=== PATIENT | female | born 1985 | race Caucasian/White ===

== ENCOUNTER 2019-09-04 20:20 | Inpatient (IN) | payer MEDICAID ==
[~2019-09-04] VITALS: Ht 162.6 cm; Wt 100.0 kg
[2019-09-04] MEDS ORDERED: HALOPERIDOL 5 MG/ML VIAL (J1630) IM ONE (21:00)
[2019-09-04] MEDS ORDERED: diphenhydrAMINE INJ 50MG/ML VIAL (J1200) IM ONE (21:00)
[2019-09-04 21:20] VITALS: BP 129/63
[2019-09-04 21:33] LABS: HEMATOCRIT 37.9 % (36.0-47.0); HEMOGLOBIN 12.1 g/dl (12.0-15.5); MEAN CORPUSCULAR HEMOGLOBIN 28.5 pg (27.0-33.0); MEAN CORPUSCULAR HGB CONC 31.9 g/dl (32.0-36.5); MEAN CORPUSCULAR VOLUME 89.4 fl (80.0-96.0); PLATELET COUNT, AUTOMATED 272 10^3/uL (150-450); RED BLOOD COUNT 4.24 10^6/uL (4.00-5.40)
[2019-09-04 21:48] LABS: AMPHETAMINES LEVEL URINE NEGATIVE (NEGATIVE); BARBITURATES URINE NEGATIVE (NEGATIVE); BENZODIAZEPINES URINE NEGATIVE (NEGATIVE); CANNABINOIDS URINE NEGATIVE (NEGATIVE); COCAINE METABOLITE URINE NEGATIVE (NEGATIVE); METHADONE URINE NEGATIVE (NEGATIVE); OPIATES URINE NEGATIVE (NEGATIVE); PHENCYCLIDINE URINE NEGATIVE (NEGATIVE)
[2019-09-04 21:55] LABS: HCG, SERUM QUALITATIVE NEGATIVE (NEGATIVE)
[2019-09-04 21:57] LABS: ACETAMINOPHEN LEVEL < 2.0 UG/ML (10.0-30.0); ALT/SGPT 19 U/L (12-78); BILIRUBIN,DIRECT 0.2 MG/DL (0.0-0.2); BILIRUBIN,TOTAL 0.4 MG/DL (0.2-1.0); BLOOD UREA NITROGEN 9 MG/DL (7-18); CALCIUM LEVEL 8.5 MG/DL (8.5-10.1); CARBON DIOXIDE LEVEL 24 MEQ/L (21-32); CHLORIDE LEVEL 105 MEQ/L (98-107); CREATININE FOR GFR 0.82 MG/DL (0.55-1.30); ETHYL ALCOHOL (ETHANOL) < 0.003 % (0.000-0.010); GLOMERULAR FILTRATION RATE > 60.0 (>60); GLUCOSE, FASTING 96 MG/DL (70-100); POTASSIUM SERUM 4.2 MEQ/L (3.5-5.1); SALICYLATE LEVEL 2.4 MG/DL (5.0-30.0); SODIUM LEVEL 138 MEQ/L (136-145); TOTAL PROTEIN 7.5 GM/DL (6.4-8.2)
[2019-09-06] MEDS ORDERED: IBUPROFEN 400 MG TAB PO PRN (12:45)
[2019-09-06] MEDS ORDERED: MOM 30ML SUSPENSION UDC PO PRN (12:45)
[2019-09-06] MEDS ORDERED: MAALOX 30 ML SUSP *UDC PO PRN (12:45)
[2019-09-06] MEDS ORDERED: OLANZapine ORAL DISINTEGRATING TAB 5MG PO PRN (12:45)
[2019-09-06] MEDS ORDERED: ACETAMINOPHEN TAB 650MG DOSE (2X325MG) PO PRN (12:45)
--- NOTE | 2019-09-07 11:04 | MHHPEPDOC ---
[facility] History & Physical History and Physical DATE OF ADMISSION: Sep 06, 2019 at 12:40 New Patient Maria Elena Fonseca MRN: N/A Date of : N/A Date of Service: 09/07/2019 Chief Complaint "You discriminate with people who wear underwear on their head." History of Present Illness The patient, a 34-year-old woman, presents to [facility] after being found by police, she had become menacing at a local restaurant with a chopstick, bizarre, disorganized, and malodorous. She had fled from the scene, running into a local grocery store where she had begun grabbing various objects and throwing a register. She was brought in where she was found to be highly tangential, unable to describe any meaningful situations that had brought her in, and had reported that she had a "TBI." However, she was noted to have fairly unusual sanitary habits, fairly malodorous and unable to care for herself. She was admitted due to her gravely disabled nature. I attempted to meet with the patient, however after close to a half an hour of attempting to get a coherent story I was unable to, as the patient was highly tangential, unable to discuss with me at length the situations that had even brought her in. She was quite upset that she was not allowed to go as she had requested a court hearing. However, her letter was illegible and difficult to read, even when I had brought it to her she was not able to translate what she had written. The patient reports that she wishes to go, however appears completely unamenable to the situation and has no insight into the situation that had brought her in. She continues to wear a disposable undergarment on her head, reporting that she is a [employer] and that she needs to wear a head covering, however she is unable to explain why other head coverings may be more useful. She is extremely malodorous with matted hair. She additionally has refused a shower and believes soap is "poison." Review Of Systems Past Psychiatric History Reports having history of "TBI" and had reported admission several years ago for hallucinations "after Wellbutrin." Does appear to have any current follow-up. Reports in the past to have indicated a history of PTSD and OCD. Allergies Please see below. Family Psychiatric History Unable to determine due to patient's significant impairment and mental status. Social History The patient is currently homeless as far as we are able to determine, with no significant social supports at this time. She is currently single from chart review, but little else is able to be determined. Substance Abuse History Unable to determine due to patient's mental status, however toxicology on presentation was negative. Medical History Unclear. Mental Status Examination General: Extremely poor hygiene Speech: Tangential and pressured Thought processes: Unclear, unlinear MSK: Smooth and coordinated gait, no signs of tremors or involuntary orofacial movements Thought content: Bizarre and paranoid Abstract reasoning, and computation: Impaired Description of associations: Impaired Description of abnormal or psychotic thoughts: Appears to be quite bizarre and paranoid. Unable to answer questions directly. Judgment: significant impairment Insight: significantly impaired to nonexistent Orientation: Alert and orientated 3 Cognition: Grossly normal Recent and remote memory: Impaired secondary to thought process Attention span and concentration: Impaired secondary to thought process Fund of knowledge: Unable to determine Mood: "fine" Affect: Elevated Diagnoses Unspecified psychotic disorder. Assessment and Plan Unspecified psychotic disorder: Start Zyprexa 5 mg nightly. Discussed with patient about the rationale for her continued stay and the need for medication due to her thought process and difficulty caring for herself. She had no insight into this and was unable to reason out why she was here or have a coherent story. The patient had become fairly upset at this, however was not overly agitated. She might need a treatment over objection and court hearing as she is unlikely to have enough insight to take medications at this time. Disposition The patient will need a further inpatient admission due to significant psychosis impairing her ability to care for herself. She is unable to attend to even the most basic ADLs at this time. Problem List 1. Altered thoughts. Initial Treatment Plan 1. Patient was admitted on a 9.39 legal status. 2. Complete history was obtained. 3. With patients permission, family will be contacted and database will be expanded. 4. Patients medication regimen will be reviewed and changed accordingly. 5. Patient will be provided with protected environment. 6. Patient will be treated with individual, group, and milieu therapies. 7. Patient will receive supportive psych-education. 8. Discharge planning will commence immediately. 9. Outpatient follow-up treatment will be strongly recommended. 10. The initial treatment plan will focus initially on: Estimated Length Of Stay 5 days. Time Spent 70 minutes in total. Friday Vital Signs Vital Signs Date Time Temp Pulse Resp B/P (MAP) Pulse Ox O2 Delivery O2 Flow Rate FiO2 09/05/19 16:26 20 09/05/19 11:02 Room Air 09/04/19 21:20 102 129/63 Medications Unable to Obtain Active Prescriptions or Reported Meds Allergies Coded Allergies: bupropion (Verified Allergy, Intermediate, 09/06/19) NASIR NUÑEZ DO Sep 07, 2019 11:04
--- NOTE | 2019-09-07 16:23 | HPEPDOC ---
General Date of Admission Sep 06, 2019 at 12:40 Date of Service: Sep 07, 2019 Chief Complaint The patient is a 34-year-old female admitted with a reason for visit of Unspecified Psychosis. Patient was found to be acting aggressively at a local restaurant, police were called to the scene. Patient was agitated and aggressive, brought to the ED and admitted to mental health unit. Patient has a history of anxiety, depression PTSD, apparently on multiple psychiatric medications but has not been on them due to "multiple allergies". On questioning, patient denies any significant medical history other than PCOS. Denies chest pain/pressure, n/v/d, abdominal pain, shortness of breath, urinary complaints. Source: Patient, RN/MD Home Medications Unable to Obtain Active Prescriptions or Reported Meds Allergies Coded Allergies: bupropion (Verified Allergy, Intermediate, 09/06/19) Past Medical History Medical History anxiety, depression, PTSD, PCOS Surgical History C section, b/l knee meniscus/ACL repair Family History Significant Family History: No pertinent family hx Social History * Smoker: former Smoker Alcohol: Denies Drugs: marijuana A-FIB/CHADSVASC A-FIB History Current/History of A-Fib/PAF?: No Current PO Anticoag Therapy: No Vital Signs Vital Signs Date Time Temp Pulse Resp B/P (MAP) Pulse Ox O2 Delivery O2 Flow Rate FiO2 09/05/19 16:26 20 09/05/19 11:02 Room Air 09/04/19 21:20 102 129/63 Assessment/Plan 1. PCOS - no active management. 2. obesity - dietary counselling for weight loss. 3. anxiety/depression/psychosis - management as per psych. Plan / VTE VTE Prophylaxis Ordered?: No JUAN ALAS MD Sep 07, 2019 16:23
[2019-09-07] MEDS: OLANZapine ORAL DISINTEGRATING TAB 5MG PO SCH (21:00)
--- NOTE | 2019-09-08 11:04 | MHIPNPDOC ---
[facility] Progress Note Progress Note Inpatient Progress Note Maria Elena Fonseca MRN: N/A Date of : N/A Date of Service: 09/08/2019 History of Present Illness The patient, a 34-year-old woman, presents to [facility] after being found by police, she had become menacing at a local restaurant with a chopstick, bizarre, disorganized, and malodorous. She had fled from the scene, running into a local grocery store where she had begun grabbing various objects and throwing a register. She was brought in where she was found to be highly tangential, unable to describe any meaningful situations that had brought her in, and had reported that she had a "TBI." However, she was noted to have fairly unusual sanitary habits, fairly malodorous and unable to care for herself. She was admitted due to her gravely disabled nature. Interval History The patient is admitted to the inpatient unit where she has done somewhat better. The patient has made some progress, although has refused medications. She did have a shower the previous evening after she had gotten special soap. The patient still is tangential, although less pressured. She has been sleeping more and less unusual today. Reportedly her mother had called and stated that she has a diagnosis of bipolar disorder. She reports that she wishes to go but nursing staff continue to report the patient is unable to care for herself and that she has not been attending to ADLs while on our unit. She has had no major behavioral problems, although the previous evening and has not lashed out violently or made any threats. Review Of Systems Difficult to ascertain due to tangentiality. Psychotherapy None on this visit. Vital Signs Reviewed. Mental Status Examination General: Improved hygiene. Speech: Less tangential. Thought processes: More linear. MSK: Smooth and coordinated gait, no signs of tremors or involuntary orofacial movements Thought content: Less paranoid. Abstract reasoning, and computation: Improved. Description of associations: Improved. Description of abnormal or psychotic thoughts: Appears to be quite bizarre and paranoid. Unable to answer questions directly. Judgment: Improved. Insight: Improved. Orientation: Alert and orientated 3 Cognition: Grossly normal Recent and remote memory: Improved. Attention span and concentration: Mildly improved. Fund of knowledge: Somewhat adequate. Mood: "fine" Affect: Less elevated. Diagnoses Unspecified psychotic disorder. Bipolar disorder type 1, most recent episode manic, mild to moderate. Assessment and Plan Bipolar disorder type 1: Discontinue Zyprexa for now as the patient does not wish to take off her lithium 150 mg daily and fluphenazine 5 mg nightly. Discussed with patient the risks and benefits as well as potential side effects as far as she is able to understand. She is willing to take lithium, but not fluphenazine. Will see if patient takes medications as to whether she has any improvement as she is primarily being held on gravely disabled of what she appears to be making some moderate strides towards becoming able to attend to basic needs. Will continue to monitor closely. Disposition Patient needs continued inpatient monitoring due to significantly impaired ADLs and ability to attend to her own needs due to her bipolar sonal. Time Spent 20 minutes. Friday Vital Signs Vital Signs Date Time Temp Pulse Resp B/P (MAP) Pulse Ox O2 Delivery O2 Flow Rate FiO2 09/05/19 16:26 20 09/05/19 11:02 Room Air 09/04/19 21:20 102 129/63 Current Medications Current Medications Medications (Trade) Dose Ordered Sig/Alfredo Route PRN Reason Start Time Stop Time Status Last Admin Dose Admin Acetaminophen (Tylenol Tab) 650 mg Q6HP PRN PO HEADACHE or DISCOMFORT 09/06/19 12:45 Al Hydrox/Mg Hydrox/Simethicone (Mylanta) 30 ml Q4HP PRN PO HEARTBURN/INDIGESTION 09/06/19 12:45 Ibuprofen (Advil) 400 mg Q6HP PRN PO PAIN 09/06/19 12:45 Magnesium Hydroxide (Milk Of Magnesia) 30 ml DAILYPRN PRN PO CONSTIPATION 09/06/19 12:45 Olanzapine (ZyPREXA ZYDIS) 5 mg Q4HP PRN PO AGITATION 09/06/19 12:45 Olanzapine (ZyPREXA ZYDIS) 5 mg QHS PO 09/07/19 21:00 Allergies Coded Allergies: bupropion (Verified Allergy, Intermediate, 09/06/19) NASIR NUÑEZ DO Sep 08, 2019 11:04
[2019-09-08] MEDS: LITHIUM CARBONATE 300MG/5ML(8MEQ/5ML)ORAL SOLUTION UDC PO SCH (20:49)
[2019-09-08] MEDS: OLANZapine ORAL DISINTEGRATING TAB 5MG PO SCH (21:00)
[2019-09-09] MEDS: LITHIUM CARBONATE 300MG/5ML(8MEQ/5ML)ORAL SOLUTION UDC PO SCH ×2 (10:10→21:07)
--- NOTE | 2019-09-09 10:14 | MHIPNPDOC ---
[facility] Progress Note Progress Note Inpatient Progress Note Maria Elena Fonseca MRN: N/A Date of : N/A Date of Service: 09/09/2019 History of Present Illness The patient, a 34-year-old woman, presents to [facility] after being found by police, she had become menacing at a local restaurant with a chopstick, bizarre, disorganized, and malodorous. She had fled from the scene, running into a local grocery store where she had begun grabbing various objects and throwing a register. She was brought in where she was found to be highly tangential, unable to describe any meaningful situations that had brought her in, and had reported that she had a "TBI." However, she was noted to have fairly unusual sanitary habits, fairly malodorous and unable to care for herself. She was admitted due to her gravely disabled nature. Interval History The patient is seen again today. She is much less tangential. She has been social on the unit, talkative and much more appropriate. She has been bathing more frequently, although requiring some prompting. Her hygiene has made significant improvement. She has been taking the lithium 150 mg BID without protest. She still is ambivalent about taking a neuroleptic despite my insistence, however, nursing staff report the patient has not been endorsing any significantly bizarre ideation and has been cooperative. She has been social on the unit, attending to her needs, further making it more likely that the patient is not gravely disabled as to put herself in danger. I discussed this with the patient and she was amenable. She agreed that she would cooperate with discharge planning as she has been insistent about going. At this point, there is little I can hold her on as she has been cooperative with treatment and other than some unusual statements at times, she is attending to her basic needs so far as we can see. She has had no major behavioral problems overnight, has attended a group or two. Review Of Systems General: Denies fever or appetite changes Cardiovascular: Denies chest pain or palpitations GI: Denies Nausea, vomiting, or bowel changes Respiratory: Denies shortness of breath or cough Neuro: Denies dizziness, tremors Derm: Denies any rashes or pruritus : Denies any dysuria or urinary problems MSK: Denies any muscle tightness or stiffness HEENT: Denies any vision changes or headaches Psychotherapy None on this visit. Vital Signs Reviewed. Mental Status Examination General: Improved hygiene. Speech: Less tangential. Thought processes: More linear. MSK: Smooth and coordinated gait, no signs of tremors or involuntary orofacial movements Thought content: No evidence of paranoid thoughts projecting today. Abstract reasoning, and computation: Improved. Description of associations: Improved. Description of abnormal or psychotic thoughts: Denies any suicidal or homicidal ideation. Denies auditory or visual hallucinations. Does not appear to be responding to internal stimuli. Is answering questions directly with no paranoid ideation. Judgment: Improved. Insight: Improved. Orientation: Alert and orientated 3 Cognition: Grossly normal Recent and remote memory: Improved. Attention span and concentration: Mildly improved. Fund of knowledge: Somewhat adequate. Mood: "Fine" Affect: Near euthymic. Diagnoses Unspecified psychotic disorder. Assessment and Plan Unspecified psychotic disorder: Discontinue Zyprexa for now as the patient does not wish to take off her lithium 150 mg daily and fluphenazine 5 mg nightly. Discussed with patient the risks and benefits as well as potential side effects as far as she is able to understand. She is willing to take lithium, but not fluphenazine. Will see if patient takes medications as to whether she has any improvement as she is primarily being held on gravely disabled of what she appears to be making some moderate strides towards becoming able to attend to basic needs. Will continue to monitor closely. Continue lithium 150 mg daily. Patient not amenable to neuroleptic/antipsychotic at this time. The patient has been improving with improved hygiene and ability to take care of herself. She is more able to corporate with discharge planning and I find myself in a position where I find it hard to justify further involuntary alf of this patient as the primary nature of gravely disabled she is not primarily meeting. She does have some symptoms of psychosis that lik omer still linger, however, she appears to be able to hold them and check well enough to cooperate with others, be social and take care of her basic needs. Although some odd behavior will likely remain, this in my opinion does not make her eligible for further involuntary and she has made it clear that she wishes to be discharged. Disposition Discharge tomorrow if continued improvement. Time Spent 20 minutes. Vital Signs Vital Signs Date Time Temp Pulse Resp B/P (MAP) Pulse Ox O2 Delivery O2 Flow Rate FiO2 09/05/19 16:26 20 09/05/19 11:02 Room Air 09/04/19 21:20 102 129/63 Current Medications Current Medications Medications (Trade) Dose Ordered Sig/Alfredo Route PRN Reason Start Time Stop Time Status Last Admin Dose Admin Acetaminophen (Tylenol Tab) 650 mg Q6HP PRN PO HEADACHE or DISCOMFORT 09/06/19 12:45 Al Hydrox/Mg Hydrox/Simethicone (Mylanta) 30 ml Q4HP PRN PO HEARTBURN/INDIGESTION 09/06/19 12:45 Fluphenazine HCl (Prolixin) 5 mg QHS PO 09/08/19 21:00 Ibuprofen (Advil) 400 mg Q6HP PRN PO PAIN 09/06/19 12:45 Eyota Carbonate (Eskalith Oral Solution) 150 mg BID PO 09/08/19 21:00 09/09/19 10:10 Magnesium Hydroxide (Milk Of Magnesia) 30 ml DAILYPRN PRN PO CONSTIPATION 09/06/19 12:45 Olanzapine (ZyPREXA ZYDIS) 5 mg Q4HP PRN PO AGITATION 09/06/19 12:45 Olanzapine (ZyPREXA ZYDIS) 5 mg QHS PO 09/07/19 21:00 Allergies Coded Allergies: bupropion (Verified Allergy, Intermediate, 09/06/19) NASIR NUÑEZ DO Sep 09, 2019 10:14
[2019-09-09] MEDS: OLANZapine ORAL DISINTEGRATING TAB 5MG PO SCH (21:00)
--- NOTE | 2019-09-10 07:44 | MHDSPDOC ---
[facility] Discharge Summary Discharge Summary DATE OF ADMISSION: Sep 06, 2019 at 12:40 DATE OF DISCHARGE: 09/09/19 Discharge Maria Elena Fonseca MRN: N/A Date of : N/A Date of Service: 09/10/2019 Diagnoses Unspecified psychotic disorder. History of Present Illness The patient, a 34-year-old woman, presents to [facility] after kiran ng found by police, she had become menacing at a local restaurant with a chopstick, bizarre, disorganized, and malodorous. She had fled from the scene, running into a local grocery store where she had begun grabbing various objects and throwing a register. She was brought in where she was found to be highly tangential, unable to describe any meaningful situations that had brought her in, and had reported that she had a "TBI." However, she was noted to have fairly unusual sanitary habits, fairly malodorous and unable to care for herself. She was admitted due to her gravely disabled nature. Consultants Involved Hospitalist/PCP screening Treatment and Progress On The Unit The patient was admitted to the inpatient unit where she was noted to be fairly malodorous and psychotic, unable to carry on a coherent conversation. The patient i day or so when she had requested discharge multiple times after explaining that she would need to show whether she was able to take care of herself and to try medications due to her psychotic disorder. She was amenable and tried lithium, reporting having done well on it before. Her mother had given us some collateral information suggesting the patient had bipolar disorder in the past. The patient made progress to 150 mg of lithium BID as this was the max amount she was willing to take. The patient did well in the unit. She began to bath more frequently. Her hygiene made some improvements. She additionally became much less tangential, more able to hold conversations and was more social on the unit, even attending some groups. She did have some unusual behaviors at time, namely a want to wear a head garment that she substituted with undergarments, however, after several days of observation, she was demonstrating she was able to take care of herself to the basic degrees and was able to cooperate with discharge planning well enough to be considered for discharge. Discharge Assessment The patient, a 34-year-old woman who presents with psychosis, is treated with low-dose lithium as she is only amenable to this, refusing to try neuroleptics even at my behest. She is observed where she had not made any threats towards herself or others and was primarily being held on the gravely disabled statute for involuntary as she had made quite clear that she did not wish to be on a psychiatric unit. She made progress where she subsequently stopped endorsing as bizarre ideation. She was less tangential, more able to hold conversations with a relatively improved mental status exam, improving every day until the day of discharge when it was determined that she did not meet strict involuntary criteria at that time as she had improved mental status, was coherent enough to cooperate with discharge planning and was amenable, however, at the time of this note, the patient had left the inpatient unit, but subsequently began to endorse psychotic ideation and refused to leave after getting into a stranger's car, sitting unusually, unable to cooperate well enough in order to go to [facility] and thus a pick-up border was called to bring her back for assessment and readmission as although she had been able to demonstrate the ability to attend to ADLs and attend to basic needs on the unit, it appears that when she was outside the unit, she was unable to maintain this and thus she overall is needing more inpatient hospitalization. Mental Status Examination General: Improved hygiene Speech: Less tangential Thought processes: More linear MSK: Smooth and coordinated gait, no signs of tremors or involuntary orofacial movements Thought content: No evidence of paranoid thoughts projecting today Abstract reasoning, and computation: Improved Description of associations: Improved Description of abnormal or psychotic thoughts: Denies any suicidal or homicidal ideation. Denies auditory or visual hallucinations. Does not appear to be responding to internal stimuli. Is answering questions directly with no paranoid ideation Judgment: Improved Insight: Improved Orientation: Alert and orientated 3 Cognition: Grossly normal Recent and remote memory: Improved Attention span and concentration: Mildly improved Fund of knowledge: Somewhat adequate Mood: "Fine" Affect: Near euthymic Follow Up The social work team worked during the predischarge meeting in order to evaluate for further issues of lethality address them fully before discharge. They worked on safety planning with the patient's family members in order to ensure that the patient will have a safe and effective discharge. Time Spent The amount of time spent in the coordination of care for this patient was approximately 70 minutes. Friday Vital Signs/I&Os Vital Signs Date Time Temp Pulse Resp B/P (MAP) Pulse Ox O2 Delivery O2 Flow Rate FiO2 09/05/19 16:26 20 09/05/19 11:02 Room Air 09/04/19 21:20 102 129/63 Medications Scheduled [place]-Arcade Carbonate (Arden-Arcade Carbonate) 300 Mg Capsule, 2.5 ML PO BID for mood for 7 Days, #35 Allergies Coded Allergies: bupropion (Verified Allergy, Intermediate, 09/06/19) NASIR NUÑEZ DO Sep 10, 2019 07:44
[2019-09-10] MEDS: LITHIUM CARBONATE 300MG/5ML(8MEQ/5ML)ORAL SOLUTION UDC PO SCH (09:55)
[2019-09-10] MEDS ORDERED: LITH300C PO (12:01)
== END 2019-09-10 15:17 | disposition home or self-care (01) | DRG 751 ==
LOC: EDBD 20:20 → M ED 20:20 → M ED INP 09-06 12:40 → M PSY 09-06 15:49
PROVIDERS: ADMIT Psychiatry & Neurology Addiction Medicine; ATTEND Psychiatry & Neurology Addiction Medicine
DX: F29 Unspecified psychosis not due to a substance or known physiological condition (principal); Z88.8 Allergy status to other drugs, medicaments and biological substances; F41.9 Anxiety disorder, unspecified; F43.10 Post-traumatic stress disorder, unspecified; Z91.14 Patient's other noncompliance with medication regimen; E28.2 Polycystic ovarian syndrome; F12.10 Cannabis abuse, uncomplicated; Z87.891 Personal history of nicotine dependence; E66.9 Obesity, unspecified; Z68.37 Body mass index [BMI] 37.0-37.9, adult; F31.12 Bipolar disorder, current episode manic without psychotic features, moderate

== ENCOUNTER 2019-09-10 16:03 | Inpatient (IN) | payer MEDICAID ==
[~2019-09-10] VITALS: Ht 162.6 cm; Wt 109.8 kg
[~2019-09-10 16:03] MED LIST: LITH300C PO
[2019-09-10] MEDS ORDERED: MOM 30ML SUSPENSION UDC PO PRN (17:00)
[2019-09-10] MEDS ORDERED: MAALOX 30 ML SUSP *UDC PO PRN (17:00)
[2019-09-10] MEDS ORDERED: traZODone 50 MG TAB PO PRN (17:00)
[2019-09-10] MEDS ORDERED: ACETAMINOPHEN TAB 650MG DOSE (2X325MG) PO PRN (17:00)
[2019-09-10 17:18] LABS: HEMATOCRIT 36.6 % (36.0-47.0); HEMOGLOBIN 11.1 g/dl (12.0-15.5); MEAN CORPUSCULAR HEMOGLOBIN 27.3 pg (27.0-33.0); MEAN CORPUSCULAR HGB CONC 30.3 g/dl (32.0-36.5); MEAN CORPUSCULAR VOLUME 90.1 fl (80.0-96.0); PLATELET COUNT, AUTOMATED 294 10^3/uL (150-450); RED BLOOD COUNT 4.06 10^6/uL (4.00-5.40); WHITE BLOOD COUNT 6.7 10^3/uL (4.0-10.0)
[2019-09-10 17:47] LABS: AMPHETAMINES LEVEL URINE NEGATIVE (NEGATIVE); BARBITURATES URINE NEGATIVE (NEGATIVE); BENZODIAZEPINES URINE NEGATIVE (NEGATIVE); CANNABINOIDS URINE NEGATIVE (NEGATIVE); COCAINE METABOLITE URINE NEGATIVE (NEGATIVE); METHADONE URINE NEGATIVE (NEGATIVE); OPIATES URINE NEGATIVE (NEGATIVE); PHENCYCLIDINE URINE NEGATIVE (NEGATIVE)
[2019-09-10 17:59] LABS: ACETAMINOPHEN LEVEL < 2.0 UG/ML (10.0-30.0); ALBUMIN 3.8 GM/DL (3.2-5.2); ALT/SGPT 20 U/L (12-78); BILIRUBIN,DIRECT 0.1 MG/DL (0.0-0.2); BILIRUBIN,TOTAL 0.2 MG/DL (0.2-1.0); BLOOD UREA NITROGEN 15 MG/DL (7-18); CALCIUM LEVEL 8.2 MG/DL (8.5-10.1); CARBON DIOXIDE LEVEL 27 MEQ/L (21-32); CHLORIDE LEVEL 105 MEQ/L (98-107); CREATININE FOR GFR 0.85 MG/DL (0.55-1.30); ETHYL ALCOHOL (ETHANOL) < 0.003 % (0.000-0.010); GLOMERULAR FILTRATION RATE > 60.0 (>60); GLUCOSE, FASTING 74 MG/DL (70-100); POTASSIUM SERUM 4.2 MEQ/L (3.5-5.1); SALICYLATE LEVEL 1.7 MG/DL (5.0-30.0); SODIUM LEVEL 139 MEQ/L (136-145); TOTAL PROTEIN 7.2 GM/DL (6.4-8.2)
[2019-09-10 20:52] VITALS: BP 113/64
[2019-09-10] MEDS: LITHIUM CARBONATE 300MG/5ML(8MEQ/5ML)ORAL SOLUTION UDC PO SCH (23:18)
[2019-09-11] MEDS ORDERED: INFLUENZA QUADRIVALENT PF VACCINE 0.5ML SYRINGE (90686) IM ONE (09:00)
[2019-09-11] MEDS: LITHIUM CARBONATE 300MG/5ML(8MEQ/5ML)ORAL SOLUTION UDC PO SCH ×2 (09:42→21:31)
--- NOTE | 2019-09-11 10:11 | HPEPDOC ---
General Date of Admission Sep 10, 2019 at 16:48 Date of Service: Sep 11, 2019 Chief Complaint The patient is a 34-year-old female admitted with a reason for visit of Unspecified Psychosis. Source: Patient Exam Limitations: No limitations Timing/Duration: Other (not applicable) Severity: Other (out applicable) Associated Symptoms: Other (not applicable) History of Present Illness This is 33 years old white female who was discharged from mental health unit, but unfortunately they had lost her shoes and clothes so as per patient, she ran out and try to get a ride from an old lady as she had no coupon for the taxi and police was called and she was brought back to inpatient mental health unit for readmission. Patient offers no complaints of chest pain, shortness of breath, nausea, vomiting, diarrhea, abdominal pain, etc. Home Medications Scheduled [place] Carbonate ([place] Carbonate) 300 Mg Capsule, 2.5 ML PO BID for mood Allergies Coded Allergies: bupropion (Verified Allergy, Intermediate, 09/06/19) Past Medical History Medical History Polycystic ovarian disease, anxiety, depression, PTSD Surgical History Bilateral ACL repair and one Family History Significant Family History: No pertinent family hx Social History * Smoker: current smoker Alcohol: Denies Drugs: marijuana A-FIB/CHADSVASC A-FIB History Current/History of A-Fib/PAF?: No Review of Systems Constitutional: Denies: Chills, Fever, Malaise, Night Sweats, Weakness, Fa tigue, Weight Loss, Lethargy, Other Eyes: Denies: Pain, Vision change, Conjunctivae inflammation, Eyelid inflammation, Redness, Other ENT: Denies: Head Aches, Ear Pain, Dysphagia, Sinus Congestion, Post Nasal Drip, Sore Throat, Epistaxis, Other Symptoms Skin: Denies: Rash, Lesions, Jaundice, Bruising, Itching, Dry, Breakdown, Nail Changes, Other Pulmonary: Denies: Dyspnea, Cough, Pleuritic Chest Pain, Other Symptoms Cardiovascular: Denies: Chest Pain, Palpitations, Orthopnea, Paroxysmal Noc. Dyspnea, Edema, Lt Headedness, Other Symptoms Gastrointestinal: Denies: Nausea, Vomiting, Abdominal Pain, Diarrhea, Constipation, Melena, Hematochezia, Other Symptoms Hematologic: Denies: Bruising, Bleeding Excessively, Petecchia, Purpura, Enlarged Lymph Nodes, Other Hematologic Endocrine: Denies: Polydipsia, Polyphagia, Polyuria, Heat Intolerance, Cold Intolerance, Other Endocrine Sx Musculoskeletal: Denies: Neck Pain, Back Pain, Shoulder Pain, Arm Pain, Hand Pain, Leg Pain, Foot Pain, Joint Pain, Muscle Pain, Spasms, Other Symptoms Neurological: Denies: Weakness, Numbness, Incoordination, Change in speech, Confusion, Seizures, Other Symptoms Psych: Reports: Anxiety, Depression Physical Examination General Exam: Positive: Alert, Cooperative Eye Exam: Positive: PERRLA, Conjunctiva & lids normal ENT Exam: Positive: Atraumatic, Mucous membr. moist/pink Chest Exam: Positive: Other (. Mild expiratory wheezing on the right side. No rhonchi is no rales) Heart Exam: Positive: Rate Normal, Normal S1, Normal S2 Abdomen Exam: Positive: Normal bowel sounds, Soft Extremity Exam: Positive: Normal pulses Skin Exam: Positive: Nl turgor and temperature Neuro Exam: Positive: Strength at 5/5 X4 ext, Sensation Intact, Cranial Nerves 3-12 NL Psych Exam: Positive: Mental status NL, Mood NL, Oriented x 3 Vital Signs Vital Signs Date Time Temp Pulse Resp B/P (MAP) Pulse Ox O2 Delivery O2 Flow Rate FiO2 09/10/19 20:52 98.8 83 16 113/64 (80) 97 Room Air Laboratory Data Labs 24H Laboratory Tests 2 09/10/19 16:47: Urine Opiates Screen NEGATIVE, Urine Methadone Screen NEGATIVE, Urine Barbiturates Screen NEGATIVE, Urine Phencyclidine Screen NEGATIVE, Urine Amphetamines Screen NEGATIVE, Urine Benzodiazepines Screen NEGATIVE, Urine Cocaine Metabolite Screen NEGATIVE, Urine Cannabinoids Screen NEGATIVE 09/10/19 17:00: Nucleated Red Blood Cells % (auto) 0.0, Anion Gap 7L, Glomerular Filtration Rate > 60.0, Calcium Level 8.2L, Total Bilirubin 0.2, Direct Bilirubin 0.1, Aspartate Amino Transf (AST/SGOT) 19, Alanine Aminotransferase (ALT/SGPT) 20, Alkaline Phosphatase 64, Total Protein 7.2, Albumin 3.8, Albumin/Globulin Ratio 1.12, Thyroid Stimulating Hormone (TSH) 1.680, Salicylates Level 1.7L, Acetaminophen Level < 2.0L, Ethyl Alcohol Level < 0.003 CBC/BMP Laboratory Tests 09/10/19 17:00 Problems (1) Disorganized thought process Status: Acute Problem Text: Patient admitted to inpatient mental health unit for further care Group and individual counseling as per psych Medications as per psychiatric attending (2) Nicotine addiction Problem Text: Patient declined to take nicotine patch or gum or any other replacement therapy at this point Smoking cessation counseling was done (3) COPD (chronic obstructive pulmonary disease) Status: Acute Problem Text: Patient has a mild wheezing on left lung on expiration, most likely secondary to COPD secondary to her smoking Patient declines any symptoms but will restart albuterol to 4 EVERY 4 hours when necessary for wheezing. She agrees to take (4) Polycystic ovarian syndrome Status: Chronic Problem Text: No further intervention at this point Plan / VTE VTE Prophylaxis Ordered?: No BEENA KAISER MD Sep 11, 2019 10:11
[2019-09-11] MEDS ORDERED: ALBUTEROL 90 MCG/ACT 8GM HFA INHALER INH PRN (10:15)
--- NOTE | 2019-09-11 11:36 | MHHPEPDOC ---
General Date Of Admission: Sep 10, 2019 Legal Status: 9.39 Chief Complaint pt was bizarre. History of Present Illness HISTORY OF THE PRESENT ILLNESS: Patient is a 34 -year-old , female, wit h history unspecified psychosis and bipolar 1 d/o who was d/c from [facility] yesterday then presented to the ED the same day of admission after she was brought in by PD after being reported as attempting to get into other people's cars in the [facility] parking lot after d/c, having rapid/expressive speech, and wearing underwear on her head. She was very tangential when see in the ED. She is a very poor historian given her current rapid speech and limited attention. Please refer to Dr. Huggisn's admit note for further information regarding previous admission [facility] for psychosis/carolann on 09/07/18. Psychiatric Review of Systems Depression (2 or more weeks): denies Carolann (4 or more days of): expansive mood, grandiosity, decreased need for sleep, still with energy, talkativity, pressured, flight of ideas, distractibility, goal-directed activities, engages in risky behavior Psychosis: disorganization PTSD: denies Anxiety: denies Anxiety/ 6 months or more of: restlessness, keyed up, difficulty concentrating Past Psychiatric History Previous Psychiatric Diagnosis: Unspecified psychotic disorder, Bipolar disorder type 1, most recent episode manic, mild to moderate. Previous Psychiatric Admissions: d/c from [facility] yesterday then presented with similar complaints as admitted same complaints/symptoms as previous on the same day of discharge Suicide Attempts: unknown Psychiatric Follow-up: [facility]? Psychiatric medications: lithium 150mg bid Past Medical History Medical Problems Unclear Head Injury: No Seizures: No Hospitalizations: Yes Surgeries: No Family Medical/Psychiatric HX Medical Problems noncontributory Psychiatric Disorders: No Addiction: No Suicide Attemps/Completions: No Addiction History other (utox negative) Social History Childhood: unknown Abuse/Trauma: unknown Current Living: homeless Employment: disabled Social Support: none Legal: none known Marital: single, never , no kids Mental Status Examination General Appearance: unkempt, disheveled, appears stated age, hospital scubs/clothing, other (facial hair, underwear on her head) Build: overweight Demeanor: preoccupied, other (bizarre, needy) Eye Contact: average Activity: other (restless) Behavior: cooperative, restless, other (bizarre) Speech: clear, pressured, spontaneous Mood: euphoric, elevated, hypomanic Mood "ok" Affect: inappropriate, labile, disorganized Thought Process: tangential, associative Thought Content (Delusions): grandiose, bizarre, denies SI, HI, AVH Thought Content (Other): preoccupied, ideas of reference Thought Content (Aggressive): none reported Perception (Hallucinations): none reported Perception (Other): none reported Cognition (Impairment of): attention/concentration Cognition(Intelligence Est.): average Oriented: Awake, Alert, Oriented times three Insight: poor Judgment: Poor Psychosis: Associations, Abstract Thinking Diagnoses Unspecified psychotic disorder Bipolar disorder type 1, most recent episode manic, mild to moderate. A-FIB/CHADSVASC A-FIB History Current/History of A-Fib/PAF?: No Current PO Anticoag Therapy: No Assessment Pt seen and very needy for attention, appearing hypomanic, elevated, euphoric, and bizarre wearing underwear on her head and pacing the unit frequently coming to my door to talk. Able to somewhat be redirected by staff. She is a very poor historian due to her limited attention. Initial Treatment Plan 1. Patient was admitted on a 9.39 status. 2. Complete history was obtained. 3. With patients permission, family will be contacted and database will be expanded. 4. Patients medication regimen will be reviewed and changed accordingly. 5. Patient will be provided with protected environment. 6. Patient will be treated with individual, group, and milieu therapies. 7. Patient will receive supportive psych-education. 8. Discharge planning will commence immediately. 9. Outpatient follow-up treatment will be strongly recommended. 10. The initial treatment plan will focus initially on: * Depression. * Risk for suicide. 11. restart lithium 150mg bid ESTIMATED LENGTH OF STAY: 7-10 DAYS. TIME SPENT COUNSELING AND COORDINATING INITIAL CARE: 60 minutes. Vital Signs Vital Signs Date Time Temp Pulse Resp B/P (MAP) Pulse Ox O2 Delivery O2 Flow Rate FiO2 09/10/19 20:52 98.8 83 16 113/64 (80) 97 Room Air Laboratory Data 24H Labs Laboratory Tests 2 09/10/19 16:47: Urine Opiates Screen NEGATIVE, Urine Methadone Screen NEGATIVE, Urine Constance turates Screen NEGATIVE, Urine Phencyclidine Screen NEGATIVE, Urine Amphetamines Screen NEGATIVE, Urine Benzodiazepines Screen NEGATIVE, Urine Cocaine Metabolite Screen NEGATIVE, Urine Cannabinoids Screen NEGATIVE 09/10/19 17:00: Nucleated Red Blood Cells % (auto) 0.0, Anion Gap 7L, Glomerular Filtration Rate > 60.0, Calcium Level 8.2L, Total Bilirubin 0.2, Direct Bilirubin 0.1, Aspartate Amino Transf (AST/SGOT) 19, Alanine Aminotransferase (ALT/SGPT) 20, Alkaline Phosphatase 64, Total Protein 7.2, Albumin 3.8, Albumin/Globulin Ratio 1.12, Thyroid Stimulating Hormone (TSH) 1.680, Salicylates Level 1.7L, Acetaminophen Level < 2.0L, Ethyl Alcohol Level < 0.003 CBC/BMP Laboratory Tests 09/10/19 17:00 Medications Scheduled [place] Carbonate ([place] Carbonate) 300 Mg Capsule, 2.5 ML PO BID for mood Allergies Coded Allergies: bupropion (Verified Allergy, Intermediate, 09/06/19) MARKUS HATCH DO Sep 11, 2019 11:36
[2019-09-11 16:44] VITALS: BP 112/62
[2019-09-12] MEDS: LITHIUM CARBONATE 300MG/5ML(8MEQ/5ML)ORAL SOLUTION UDC PO SCH ×2 (08:07→20:30)
--- NOTE | 2019-09-12 09:51 | MHIPNPDOC ---
[facility] Progress Note Progress Note DATE OF SERVICE: 09/12/19 HISTORY: Patient is a 34 -year-old , female, with history unspecified psychosis and bipolar 1 d/o who was d/c from [facility] yesterday then presented to [facility] ED the same day of admission after she was brought in by PD after being reported as attempting to get into other people's cars in the [facility] parking lot after d/c, having rapid/expressive speech, and wearing underwear on her head. She was very tangential when see in the ED. She is a very poor historian given her current rapid speech and limited attention. Please refer to Dr. Huggins's admit note for further information regarding previous admission [facility] for psychosis/sonal on 09/07/18. Pt seen and very needy for attention, appearing hypomanic, elevated, euphoric, and bizarre wearing underwear on her head and pacing the unit frequently coming to my door to talk. Able to somewhat be redirected by staff. She is a very poor historian due to her limited attention. VITAL SIGNS: See below. NEW TEST RESULTS: See below. CURRENT MEDICATIONS: See below. MENTAL STATUS EXAMINATION: General Appearance: unkempt, disheveled, appears stated age, hospital scubs/clothing, other (facial hair, underwear on her head) Build: overweight Demeanor: preoccupied, other (bizarre, needy) Eye Contact: average Activity: other (restless) Behavior: cooperative, restless, other (bizarre) Speech: clear, pressured, spontaneous Mood: euphoric, elevated, hypomanic Mood "ok" Affect: inappropriate, labile, disorganized Thought Process: tangential, associative Thought Content (Delusions): grandiose, bizarre, denies SI, HI, AVH Thought Content (Other): preoccupied, ideas of reference Thought Content (Aggressive): none reported Perception (Hallucinations): none reported Perception (Other): none reported Cognition (Impairment of): attention/concentration Cognition(Intelligence Est.): average Oriented: Awake, Alert, Oriented times three Insight: poor Judgment: Poor Psychosis: Associations, Abstract Thinking DIAGNOSES: Unspecified psychotic disorder Bipolar disorder type 1, most recent episode manic, mild to moderate. ASSESSMENT:Pt seen wearing underwear on her head still stating "the woman did have a problem with me getting in her car... I'm not in trouble... why did the head of sales and marketing have to bring me back under a 9.41?.." Pt insight and judgement remains still very poor as indicated by her statement. She is compliant with her lithium. She continues to be hypomanic, elevated, pacing the unit, and bizarre. She denies SI/HI. Pt feels safe here. MANAGEMENT PLAN: continue per Dr. Huggins lithium 150mg bid TIME SPENT: 30 minutes. Vital Signs Vital Signs Date Time Temp Pulse Resp B/P (MAP) Pulse Ox O2 Delivery O2 Flow Rate FiO2 09/11/19 16:44 98.2 93 20 112/62 (79) 09/10/19 20:52 97 Room Air Current Medications Current Medications Medications (Trade) Dose Ordered Sig/Alfredo Route PRN Reason Start Time Stop Time Status Last Admin Dose Admin Acetaminophen (Tylenol Tab) 650 mg Q6HP PRN PO HEADACHE or DISCOMFORT 09/10/19 17:00 Al Hydrox/Mg Hydrox/Simethicone (Mylanta) 30 ml Q4HP PRN PO HEARTBURN/INDIGESTION 09/10/19 17:00 Albuterol Sulfate (Proventil, Ventolin Hfa) 2 puff Q4HP PRN INH SHORTNESS OF BREATH 09/11/19 10:15 Home Med (Med Rec Complete!) ASDIRECTED XX 09/10/19 17:45 09/10/19 17:43 DC [place] Carbonate (Eskalith Oral Solution) 150 mg BID PO 09/10/19 21:00 09/12/19 08:07 Magnesium Hydroxide (Milk Of Magnesia) 30 ml DAILYPRN PRN PO CONSTIPATION 09/10/19 17:00 Trazodone HCl (Desyrel) 50 mg QHSP PRN PO INSOMNIA 09/10/19 17:00 Allergies Coded Allergies: bupropion (Verified Allergy, Intermediate, 09/06/19) MARKUS HATCH DO Sep 12, 2019 09:51
[2019-09-12] MEDS ORDERED: chlorproMAZINE INJ 50MG/2ML AMP (J3230) IM STA (11:45)
[2019-09-12] MEDS ORDERED: LORazepam 2 MG/ML VIAL (J2060) IM STA ×2 (11:45→11:51)
--- NOTE | 2019-09-12 12:17 | MHIR ---
General Date: Sep 12, 2019 Time Initiated: 12:10 Restraint Documentation Order/Evaluation FACE TO FACE: yes. PHYSICIAN ASSESSMENT: Pt seen to have costume design teacher in her pants by nursing staff and confronted by staff so they could search her room, person, and belongings which caused pt to be agitated, yelling at staff, and combative. Asphalt Heater Tender was not found by staff so must have put in her anus or vagina and staff will be vigilant to see it again as was seen earlier in the day to have it. Pt seen, yelling stating she didn't have a costume design teacher but then "I was lighting toilet paper... they must have saw the toilet paper I put in pants for the moisture!" Asked pt if she was lighting toilet paper with her costume design teacher and stated "I didn't have a costume design teacher!" REASON FOR RESTRAINT: Patient poses imminent danger of harming self or others: agitated, combative behavior, has a costume design teacher somewhere on her person most likely her anus or vagina that staff will maintain vigilance for. DE-ESCALATION INTERVENTIONS ATTEMPTED BEFORE USE OF RESTRAINTS: prn medication, staff support, redirection [MECHANICAL AND/OR CHEMICAL] RESTRAINTS USED: both; thorazine 50mg and ativan 2mg x2 im LENGTH OF TIME ORDERED IN RESTRAINTS: 240 minutes. WHEN TO DISCONTINUE RESTRAINTS: When the patient is no longer a threat to thems elves or others. Post evaluation of restraint due in 24 hours. MARKUS HATCH DO Sep 12, 2019 12:17
--- NOTE | 2019-09-13 06:53 | MHIPNPDOC ---
[facility] Progress Note Progress Note Inpatient Progress Note Maria Elena Fonseca MRN: N/A Date of : N/A Date of Service: 09/13/2019 History of Present Illness The patient is a 34-year-old woman who is rapidly readmitted after the patient decompensated when she was discharged. Is brought back, she is much more paranoid, aggressive and violent. When she is denied various underwear for head covering, she had been coded the previous evening. After her readmission she had subsequently left the unit where she then got into a strangers car and was refusing to leave. Unable to function without any assistance, she was brought back and readmitted. Interval History The patient is met with today, she is still minimizing the events of yesterday, unable to explain the reported threats other than to say others were "hallucinating." She has continued to be aggressive, needing a code where she had grabbed a nurse and had been trying to smuggle tobacco and a drilling engineering manager since her admission. She has needed to be on a 1-1, continually paranoid and threatening in order to get discharge. I attempted to discuss with the patient that her [place] was likely not helpful at the current dose as she was not able to tolerate the pressures of the outside world and thus she would further need treatment. She was unable to appreciate this. She has attended no groups. Review Of Systems Unable due to mental status. Psychotherapy None on this visit. Vital Signs Reviewed. Mental Status Examination General: Poor hygiene Speech: Pressured Thought processes: Tangential MSK: Significant restlessness Thought content: Bizarre and paranoid Abstract reasoning, and computation: Impaired Description of associations: Impaired Description of abnormal or psychotic thoughts: Appears to be significantly paranoid. Judgment: Impaired Insight: Impaired Orientation: Alert and orientated 3 Cognition: Grossly normal Recent and remote memory: Intact Attention span and concentration: Impaired Fund of knowledge: Impaired Mood: "okay" Affect: Elevated and labile Diagnoses Unspecified psychotic disorder. Assessment and Plan Unspecified psychiatric disorder: Increased lithium to 300 mg b.i.d. Has reported history of bipolar disorder with psychotic features. Start fluphenazine 5 mg q.h.s. Unclear primary psychotic disorder versus schizoaffective versus bipolar. Disposition The patient will need a further inpatient admission as her psychosis has significantly decompensated, unable to recompensate in order to prevent her from being a danger to herself. Time Spent 20 minutes. Friday Vital Signs Vital Signs Date Time Temp Pulse Resp B/P (MAP) Pulse Ox O2 Delivery O2 Flow Rate FiO2 09/11/19 16:44 98.2 93 20 112/62 (79) 09/10/19 20:52 97 Room Air Current Medications Current Medications Medications (Trade) Dose Ordered Sig/Alfredo Route PRN Reason Start Time Stop Time Status Last Admin Dose Admin Acetaminophen (Tylenol Tab) 650 mg Q6HP PRN PO HEADACHE or DISCOMFORT 09/10/19 17:00 Al Hydrox/Mg Hydrox/Simethicone (Mylanta) 30 ml Q4HP PRN PO HEARTBURN/INDIGESTION 09/10/19 17:00 Albuterol Sulfate (Proventil, Ventolin Hfa) 2 puff Q4HP PRN INH SHORTNESS OF BREATH 09/11/19 10:15 Chlorpromazine HCl (Thorazine) 50 mg STAT STAT IM 09/12/19 11:45 09/12/19 11:50 DC 09/12/19 11:56 Home Med (Med Rec Complete!) ASDIRECTED XX 09/10/19 17:45 09/10/19 17:43 DC [place] Carbonate (Eskalith Oral Solution) 150 mg BID PO 09/10/19 21:00 09/12/19 20:30 Lorazepam (Ativan) 1 mg STAT STAT IM 09/12/19 11:45 09/12/19 11:54 DC Lorazepam (Ativan) 2 mg STAT STAT IM 09/12/19 11:51 09/12/19 11:52 DC 09/12/19 11:55 Magnesium Hydroxide (Milk Of Magnesia) 30 ml DAILYPRN PRN PO CONSTIPATION 09/10/19 17:00 Trazodone HCl (Desyrel) 50 mg QHSP PRN PO INSOMNIA 09/10/19 17:00 Allergies Coded Allergies: bupropion (Verified Allergy, Intermediate, 09/06/19) NASIR NUÑEZ DO Sep 13, 2019 06:53
[2019-09-13] MEDS: LITHIUM CARBONATE 300MG/5ML(8MEQ/5ML)ORAL SOLUTION UDC PO SCH ×2 (09:00→21:00)
[2019-09-13 17:02] VITALS: BP 103/56
[2019-09-14] MEDS: LITHIUM CARBONATE 300MG/5ML(8MEQ/5ML)ORAL SOLUTION UDC PO SCH ×2 (09:30→21:00)
--- NOTE | 2019-09-14 09:50 | MHIPNPDOC ---
[facility] Progress Note Progress Note Inpatient Progress Note Maria Elena Fonseca MRN: N/A Date of : N/A Date of Service: 09/14/2019 History of Present Illness The patient is a 34-year-old woman who is rapidly readmitted after the patient decompensated when she was discharged. Is brought back, she is much more paranoid, aggressive and violent. When she is denied various underwear for head covering, she had been coded the previous evening. After her readmission she had subsequently left the unit where she then got into a strangers car and was refusing to leave. Unable to function without any assistance, she was brought back and readmitted. Interval History The patient is attempted to be met with today. She appears fixated on various paranoid delusions that she has been set up to be admitted again and again. The patient continues to fixate without any discussion about medications, continuing to offer variety of paranoid and unrealistic explanations as to why she cannot take medicine. She continues to have very poor hygiene, is malodorous and has difficulty attending to needs on the unit. The discussion tends to be entirely focused on her attempting to reason to get out of the unit, being unable to rectify the issues that had brought her in. Review Of Systems Unable to participate due to patient's mental status. Psychotherapy None on this visit. Vital Signs Reviewed. Mental Status Examination General: Poor hygiene Speech: Pressured Thought processes: Tangential MSK: Significant restlessness Thought content: Bizarre and paranoid Abstract reasoning, and computation: Impaired Description of associations: Impaired Description of abnormal or psychotic thoughts: Appears to be significantly paranoid. Judgment: Impaired Insight: Impaired Orientation: Alert and orientated 3 Cognition: Grossly normal Recent and remote memory: Intact Attention span and concentration: Impaired Fund of knowledge: Impaired Mood: "okay" Affect: Elevated and labile Diagnoses Unspecified psychotic disorder. Assessment and Plan Unspecified psychiatric disorder: Continue increased lithium 300 mg BID and offe ring fluphenazine 5 mg QHS. QUINCY will likely need to be pursued. Disposition The patient will need a further inpatient admission due to her significantly impairing psychosis leaving her greatly disabled. Time Spent 15 minutes. Friday Vital Signs Vital Signs Date Time Temp Pulse Resp B/P (MAP) Pulse Ox O2 Delivery O2 Flow Rate FiO2 09/13/19 17:02 98.0 80 18 103/56 (72) 09/10/19 20:52 97 Room Air Current Medications Current Medications Medications (Trade) Dose Ordered Sig/Alfredo Route PRN Reason Start Time Stop Time Status Last Admin Dose Admin Acetaminophen (Tylenol Tab) 650 mg Q6HP PRN PO HEADACHE or DISCOMFORT 09/10/19 17:00 Al Hydrox/Mg Hydrox/Simethicone (Mylanta) 30 ml Q4HP PRN PO HEARTBURN/INDIGESTION 09/10/19 17:00 Albuterol Sulfate (Proventil, Ventolin Hfa) 2 puff Q4HP PRN INH SHORTNESS OF BREATH 09/11/19 10:15 Chlorpromazine HCl (Thorazine) 50 mg STAT STAT IM 09/12/19 11:45 09/12/19 11:50 DC 09/12/19 11:56 Fluphenazine HCl (Prolixin) 5 mg QHS PO 09/13/19 21:00 Home Med (Med Rec Complete!) ASDIRECTED XX 09/10/19 17:45 09/10/19 17:43 DC [place] Carbonate (Eskalith Oral Solution) 150 mg BID PO 09/10/19 21:00 09/13/19 09:01 DC 09/12/19 20:30 [place] Carbonate (Eskalith Oral Solution) 300 mg BID PO 09/13/19 09:00 Lorazepam (Ativan) 1 mg STAT STAT IM 09/12/19 11:45 09/12/19 11:54 DC Lorazepam (Ativan) 2 mg STAT STAT IM 09/12/19 11:51 09/12/19 11:52 DC 09/12/19 11:55 Magnesium Hydroxide (Milk Of Magnesia) 30 ml DAILYPRN PRN PO CONSTIPATION 09/10/19 17:00 Trazodone HCl (Desyrel) 50 mg QHSP PRN PO INSOMNIA 09/10/19 17:00 Allergies Coded Allergies: bupropion (Verified Allergy, Intermediate, 09/06/19) NASIR NUÑEZ DO Sep 14, 2019 09:50
--- NOTE | 2019-09-15 08:08 | MHIPNPDOC ---
[facility] Progress Note Progress Note Inpatient Progress Note Maria Elena Fonseca MRN: N/A Date of : N/A Date of Service: 09/15/2019 History of Present Illness The patient is a 34-year-old woman who is rapidly readmitted after the patient decompensated when she was discharged. Is brought back, she is much more paranoid, aggressive and violent. When she is denied various underwear for head covering, she had been coded the previous evening. After her readmission she had subsequently left the unit where she then got into a strangers car and was refusing to leave. Unable to function without any assistance, she was brought back and readmitted. Interval History The patient is met with today, however, she is still fairly paranoid and rambles about the incident that had brought her and she has had significant problems complying with any directions and at times will become threatening. The patient had her treatment over objection initial and subsequent done today. She was francine ble to explain her rationale sufficiently well and court will be pursued. The patient approached me and continued to state that she did not want to take medications and was wholly uninterested and unable to understand any rationale. She is attending groups at times and still has difficulty collecting different items, malodorous and difficult to engage with for basic ADLs. She was unable to be effectively interviewed due to her severe tangentiality. Review Of Systems Unable to participate due to patient's mental status. Psychotherapy None on this visit. Vital Signs Reviewed. Mental Status Examination General: Poor hygiene Speech: Pressured Thought processes: Tangential MSK: Significant restlessness Thought content: Bizarre and paranoid Abstract reasoning, and computation: Impaired Description of associations: Impaired Description of abnormal or psychotic thoughts: Appears to be significantly paranoid Judgment: Impaired Insight: Impaired Orientation: Alert and orientated 3 Cognition: Grossly normal Recent and remote memory: Intact Attention span and concentration: Impaired Fund of knowledge: Impaired Mood: "okay" Affect: Elevated and labile Diagnoses Unspecified psychotic disorder. Assessment and Plan Unspecified psychiatric disorder: Continue to offer lithium 300 mg BID with propranolol 10 mg if needed for EPS prophylaxis. Fluphenazine 5 mg QHS continued to be offered. Treatment over objection hearing to be scheduled. Disposition The patient will need a further inpatient admission due to her significantly impairing psychosis leaving her greatly disabled. Time Spent 15 minutes. Friday Vital Signs Vital Signs Date Time Temp Pulse Resp B/P (MAP) Pulse Ox O2 Delivery O2 Flow Rate FiO2 09/15/19 06:57 20 09/13/19 17:02 98.0 80 103/56 (72) 09/10/19 20:52 97 Room Air Current Medications Current Medications Medications (Trade) Dose Ordered Sig/Alfredo Route PRN Reason Start Time Stop Time Status Last Admin Dose Admin Acetaminophen (Tylenol Tab) 650 mg Q6HP PRN PO HEADACHE or DISCOMFORT 09/10/19 17:00 Al Hydrox/Mg Hydrox/Simethicone (Mylanta) 30 ml Q4HP PRN PO HEARTBURN/INDIGESTION 09/10/19 17:00 Albuterol Sulfate (Proventil, Ventolin Hfa) 2 puff Q4HP PRN INH SHORTNESS OF BREATH 09/11/19 10:15 Chlorpromazine HCl (Thorazine) 50 mg STAT STAT IM 09/12/19 11:45 09/12/19 11:50 DC 09/12/19 11:56 Fluphenazine HCl (Prolixin) 5 mg QHS PO 09/13/19 21:00 Home Med (Med Rec Complete!) ASDIRECTED XX 09/10/19 17:45 09/10/19 17:43 DC [place] Carbonate (Eskalith Oral Solution) 150 mg BID PO 09/10/19 21:00 09/13/19 09:01 DC 09/12/19 20:30 [place] Carbonate (Eskalith Oral Solution) 300 mg BID PO 09/13/19 09:00 Lorazepam (Ativan) 1 mg STAT STAT IM 09/12/19 11:45 09/12/19 11:54 DC Lorazepam (Ativan) 2 mg STAT STAT IM 09/12/19 11:51 09/12/19 11:52 DC 09/12/19 11:55 Magnesium Hydroxide (Milk Of Magnesia) 30 ml DAILYPRN PRN PO CONSTIPATION 09/10/19 17:00 Trazodone HCl (Desyrel) 50 mg QHSP PRN PO INSOMNIA 09/10/19 17:00 Allergies Coded Allergies: bupropion (Verified Allergy, Intermediate, 09/06/19) NASIR NUÑEZ DO Sep 15, 2019 08:08
[2019-09-15] MEDS: LITHIUM CARBONATE 300MG/5ML(8MEQ/5ML)ORAL SOLUTION UDC PO SCH ×3 (09:00→20:18)
--- NOTE | 2019-09-15 10:51 | MHIPNPDOC ---
[facility] Progress Note Progress Note DATE OF SERVICE: 09/15/2019 ADMIT DATE: 09/10/2018 TREATMENT OVER OBJECTION ATTENDING DOCTOR: Nasir Hester DO FAMILY CONTACTS: Mother SECTION I: CLINICAL SUMMARY: HISTORY OF ADMISSION: The patient is a 34-year-old woman who is rapidly readmitted after the patient decompensated when she was discharged. Is brought back, she is much more paranoid, aggressive and violent. When she is denied various underwear for head covering, she had been coded the previous evening. After her readmission she had subsequently left the unit where she then got into a strangers car and was refusing to leave. Unable to function without any assistance, she was brought back and readmitted. DIAGNOSIS: Psychotic disorder, unspecified SECTION II: Proposed Treatment. 1. Course of treatment recommended by treating physician: To prescribe either an antipsychotic or mood stabilizer or both, such as the following: - Prolixin 5 twice a day with the option of increasing this dose progressively up to 30mg per day as tolerated for signs and symptoms of psychosis. Initiate Prolixin Decanoate 50mg to 100mg intramuscular every month. If the patient refuses treatment by mouth, the patient should receive Prolixin intramuscular 10 mg at various doses up to a total of 30 mg per day. The patient will then be maintained on Prolixin Decanoate 50mg to 100mg intramuscular every month once he is discharged - Cogentin 0.5 to 1mg daily up to a total of 4 mg per day in divided doses if Parkinsonian symptoms are evident. 2. Reasonable alternatives if any are:Thorazine 50-100mg IM or Haldol 10mg IM and Ativan 2mg IM in the event patient becomes a danger to herself or others during her treatment. The patient requires an antipsychotic medication for the treatment of his schizophrenia 3. Has the patient been tried on the proposed treatment: The patient has been on trials of Haldol, Thorazine, Ativan, Seroquel in the past with good efficacy and tolerability. 4. Anticipated benefits to proposed treatment: The patient will be able to have basic ability to control her behavior and coordinate her care, so that she is able to attend to basic needs of life, of which she is not currently. 5. Reasonable foreseeable adverse side effects: Parkinsonian symptoms, weight gain, sedation, side effects of neuroleptics. In rare cases, neuroleptic malignant syndrome and tardive dyskinesia may develop. However, the treatment team believes that the benefit outweighs any risk. 6. Prognosis without treatment: Grim, she would likely due to her inability to meet basic needs, her aggression would become worse, where she could injure another SECTION III: Patient's capacity. 1. Explained to the patient: A. Condition: Y B. Proposed treatment: Y C. Anticipated benefits of treatment: Y D. Risks of adverse side effects of treatment: Y E. Availability of other treatments and comparison of benefits and risks: Y F. Risk of no treatment:Y Patient reports that she feels that she has a TBI and is not psychotic, refuses to consider any events, continues to be paranoid thinking, feeling that we are conspiring against her. No insight into the situation that brought her in. 2. State the nature of the patient's objections to treatment: Reports that she has had bad reactions to previous medications, unable to describe them or take a new medication she hasn't tried before. 3. The patient's capacity: In my opinion, the patient lacks the capacity to make any important decisions on her treatment at this time. The patient lacks insight into the nature and severity of his illness, his need for treatment and his prognosis. SECTION IV: LIKELIHOOD FOR DANGEROUS BEHAVIOR: 1. The patient is believed to be dangerous to others at the hospital unless treated: Yes. 2. Is the patient believed to be likely dangerous to self if not treated: Yes. she has been aggressive and threatening on the unit, unable to attend to basic needs, tangential and disorganized. Failed attempt at lower level of care or less restrictive. SECTION V: ANY OTHER INFORMATION:n/a Vital Signs Vital Signs Date Time Temp Pulse Resp B/P (MAP) Pulse Ox O2 Delivery O2 Flow Rate FiO2 09/15/19 06:57 20 09/13/19 17:02 98.0 80 103/56 (72) 09/10/19 20:52 97 Room Air Current Medications Current Medications Medications (Trade) Dose Ordered Sig/Alfredo Route PRN Reason Start Time Stop Time Status Last Admin Dose Admin Acetaminophen (Tylenol Tab) 650 mg Q6HP PRN PO HEADACHE or DISCOMFORT 09/10/19 17:00 Al Hydrox/Mg Hydrox/Simethicone (Mylanta) 30 ml Q4HP PRN PO HEARTBURN/INDIGESTION 09/10/19 17:00 Albuterol Sulfate (Proventil, Ventolin Hfa) 2 puff Q4HP PRN INH SHORTNESS OF BREATH 09/11/19 10:15 Chlorpromazine HCl (Thorazine) 50 mg STAT STAT IM 09/12/19 11:45 09/12/19 11:50 DC 09/12/19 11:56 Fluphenazine HCl (Prolixin) 5 mg QHS PO 09/13/19 21:00 Home Med (Med Rec Complete!) ASDIRECTED XX 09/10/19 17:45 09/10/19 17:43 DC [place] Carbonate (Eskalith Oral Solution) 150 mg BID PO 09/10/19 21:00 09/13/19 09:01 DC 09/12/19 20:30 [place] Carbonate (Eskalith Oral Solution) 300 mg BID PO 09/13/19 09:00 Lorazepam (Ativan) 1 mg STAT STAT IM 09/12/19 11:45 09/12/19 11:54 DC Lorazepam (Ativan) 2 mg STAT STAT IM 09/12/19 11:51 09/12/19 11:52 DC 09/12/19 11:55 Magnesium Hydroxide (Milk Of Magnesia) 30 ml DAILYPRN PRN PO CONSTIPATION 09/10/19 17:00 Trazodone HCl (Desyrel) 50 mg QHSP PRN PO INSOMNIA 09/10/19 17:00 Allergies Coded Allergies: bupropion (Verified Allergy, Intermediate, 09/06/19) NASIR HESTER DO Sep 15, 2019 10:51
--- NOTE | 2019-09-16 08:21 | MHIPNPDOC ---
[facility] Progress Note Progress Note Inpatient Progress Note Maria Elena Fonseca MRN: N/A Date of : N/A Date of Service: 09/16/2019 History of Present Illness The patient is a 34-year-old woman who is rapidly readmitted after the patient decompensated when she was discharged. Is brought back, she is much more paranoid, aggressive and violent. When she is denied various underwear for head covering, she had been coded the previous evening. After her readmission she had subsequently left the unit where she then got into a strangers car and was refusing to leave. Unable to function without any assistance, she was brought back and readmitted. Interval History Psychiatric symptoms today: Affective: Patient denies at this time. Psychotic: Continued disorganization, poor hygiene, tangentiality and difficulty focusing with significant paranoid and bizarre ideation. Anxiety: None significantly noted. Misc: Continues to have hoarding behaviors. Group Attendance: Attends groups frequently. Medication Side effects: See ROS below Behavioral problems/significant events overnight: Patient had an episode where she refused to bathe and stayed in the shower running the water where she required significant redirection in order to be escorted out. Staff Report: Continues to be demanding, psychotic, bizarre and unable to rectify any of the situations that she sees, has been noted to become increasingly aggressive when people come near any of her things. Review Of Systems Cardiovascular: Denies Chest pain or palpations GI: Denies Nausea, vomiting, or bowel changes Respiratory: Denies shortness of breath or cough Neuro: Denies dizziness, tremors Derm: Denies any rashes or pruritus : Denies any dysuria or urinary problems MSK: Denies any muscle tightness or stiffness Psychotherapy None on this visit. Vital Signs Reviewed. Mental Status Examination General: Poor hygiene Speech: Pressured Thought processes: Tangential MSK: Significant restlessness Thought content: Bizarre and paranoid Abstract reasoning, and computation: Impaired Description of associations: Impaired Description of abnormal or psychotic thoughts: Appears to still be significantly paranoid, but denies any suicidal or homicidal ideation Judgment: Impaired Insight: Impaired Orientation: Alert and orientated 3 Cognition: Grossly normal Recent and remote memory: Intact Attention span and concentration: Impaired Fund of knowledge: Impaired Mood: "okay" Affect: Elevated and labile Diagnoses Unspecified psychotic disorder. Assessment and Plan Unspecified psychiatric disorder: Continue to offer 300 mg of lithium BID with propranolol as needed. We will increase fluphenazine to 10 mg nightly. Continuing to pursue treatment over objection as patient has noted history of taking medications and then stopping suddenly if she is no longer compelled. Disposition The patient will need a further inpatient admission due to her significantly impairing psychosis leaving her greatly disabled. Time Spent 15 minutes. Vital Signs Vital Signs Date Time Temp Pulse Resp B/P (MAP) Pulse Ox O2 Delivery O2 Flow Rate FiO2 09/15/19 06:57 20 09/13/19 17:02 98.0 80 103/56 (72) 09/10/19 20:52 97 Room Air Current Medications Current Medications Medications (Trade) Dose Ordered Sig/Alfredo Route PRN Reason Start Time Stop Time Status Last Admin Dose Admin Acetaminophen (Tylenol Tab) 650 mg Q6HP PRN PO HEADACHE or DISCOMFORT 09/10/19 17:00 Al Hydrox/Mg Hydrox/Simethicone (Mylanta) 30 ml Q4HP PRN PO HEARTBURN/INDIGESTION 09/10/19 17:00 Albuterol Sulfate (Proventil, Ventolin Hfa) 2 puff Q4HP PRN INH SHORTNESS OF BREATH 09/11/19 10:15 Chlorpromazine HCl (Thorazine) 50 mg STAT STAT IM 09/12/19 11:45 09/12/19 11:50 DC 09/12/19 11:56 Fluphenazine HCl (Prolixin) 5 mg QHS PO 09/13/19 21:00 09/15/19 20:18 Home Med (Med Rec Complete!) ASDIRECTED XX 09/10/19 17:45 09/10/19 17:43 DC [place] Carbonate (Eskalith Oral Solution) 150 mg BID PO 09/10/19 21:00 09/13/19 09:01 DC 09/12/19 20:30 [place] Carbonate (Eskalith Oral Solution) 300 mg BID PO 09/13/19 09:00 09/15/19 20:18 Lorazepam (Ativan) 1 mg STAT STAT IM 09/12/19 11:45 09/12/19 11:54 DC Lorazepam (Ativan) 2 mg STAT STAT IM 09/12/19 11:51 09/12/19 11:52 DC 09/12/19 11:55 Magnesium Hydroxide (Milk Of Magnesia) 30 ml DAILYPRN PRN PO CONSTIPATION 09/10/19 17:00 Trazodone HCl (Desyrel) 50 mg QHSP PRN PO INSOMNIA 09/10/19 17:00 Allergies Coded Allergies: bupropion (Verified Allergy, Intermediate, 09/06/19) NASIR NUÑEZ DO Sep 16, 2019 08:21
[2019-09-16] MEDS: LITHIUM CARBONATE 300MG/5ML(8MEQ/5ML)ORAL SOLUTION UDC PO SCH ×2 (09:40→20:52)
--- NOTE | 2019-09-16 10:04 | MHIPNPDOC ---
[facility] Progress Note Progress Note DATE OF SERVICE: 09/15/19 ADMIT DATE: 09/10/2018 TREATMENT OVER OBJECTION ATTENDING DOCTOR: Toy Hester DO FAMILY CONTACTS: Mother SECTION I: CLINICAL SUMMARY: HISTORY OF ADMISSION: The patient is a 34-year-old woman who is rapidly readmitted after the patient decompensated when she was discharged. Is brought back, she is much more paranoid, aggressive and violent. When she is denied various underwear for head covering, she had been coded the previous evening. After her readmission she had subsequently left the unit where she then got into a strangers car and was refusing to leave. Unable to function without any assistance, she was brought back and readmitted. DIAGNOSIS: Psychotic disorder, unspecified SECTION II: Proposed Treatment. 1. Course of treatment recommended by treating physician: To prescribe either an antipsychotic or mood stabilizer or both, such as the following: - Prolixin 5 twice a day with the option of increasing this dose progressively up to 30mg per day as tolerated for signs and symptoms of psychosis. Initiate Prolixin Decanoate 50mg to 100mg intramuscular every month. If the patient refuses treatment by mouth, the patient should receive Prolixin intramuscular 10 mg at various doses up to a total of 30 mg per day. The patient will then be maintained on Prolixin Decanoate 50mg to 100mg intramuscular every month once he is discharged - Cogentin 0.5 to 1mg daily up to a total of 4 mg per day in divided doses if Parkinsonian symptoms are evident. 2. Reasonable alternatives if any are:Thorazine 50-100mg IM or Haldol 10mg IM and Ativan 2mg IM in the event patient becomes a danger to herself or others during her treatment. The patient requires an antipsychotic medication for the treatment of his schizophrenia 3. Has the patient been tried on the proposed treatment: The patient has been on trials of Haldol, Thorazine, Ativan, Seroquel in the past with good efficacy and tolerability. 4. Anticipated benefits to proposed treatment: The patient will be able to have basic ability to control her behavior and coordinate her care, so that she is able to attend to basic needs of life, of which she is not currently. 5. Reasonable foreseeable adverse side effects: Parkinsonian symptoms, weight gain, sedation, side effects of neuroleptics. In rare cases, neuroleptic malignant syndrome and tardive dyskinesia may develop. However, the treatment team believes that the benefit outweighs any risk. 6. Prognosis without treatment: Grim, she would likely due to her inability to meet basic needs, her aggression would become worse, where she could injure another SECTION III: Patient's capacity. 1. Explained to the patient: A. Condition: Y B. Proposed treatment: Y C. Anticipated benefits of treatment: Y D. Risks of adverse side effects of treatment: Y E. Availability of other treatments and comparison of benefits and risks: Y F. Risk of no treatment:Y Patient reports that she feels that she has a TBI and is not psychotic, refuses to consider any events, continues to be paranoid thinking, feeling that we are conspiring against her. No insight into the situation that brought her in. 2. State the nature of the patient's objections to treatment: Reports that she has had bad reactions to previous medications, unable to describe them or take a new medication she hasn't tried before. 3. The patient's capacity: In my opinion, the patient lacks the capacity to make any important decisions on her treatment at this time. The patient lacks insight into the nature and severity of his illness, his need for treatment and his prognosis. SECTION IV: LIKELIHOOD FOR DANGEROUS BEHAVIOR: 1. The patient is believed to be dangerous to others at the hospital unless treated: Yes. 2. Is the patient believed to be likely dangerous to self if not treated: Yes. she has been aggressive and threatening on the unit, unable to attend to basic needs, tangential and disorganized. Failed attempt at lower level of care or less restrictive. SECTION V: ANY OTHER INFORMATION:n/a Vital Signs Vital Signs Date Time Temp Pulse Resp B/P (MAP) Pulse Ox O2 Delivery O2 Flow Rate FiO2 09/15/19 06:57 20 09/13/19 17:02 98.0 80 103/56 (72) 09/10/19 20:52 97 Room Air Current Medications Current Medications Medications (Trade) Dose Ordered Sig/Alfredo Route PRN Reason Start Time Stop Time Status Last Admin Dose Admin Acetaminophen (Tylenol Tab) 650 mg Q6HP PRN PO HEADACHE or DISCOMFORT 09/10/19 17:00 Al Hydrox/Mg Hydrox/Simethicone (Mylanta) 30 ml Q4HP PRN PO HEARTBURN/INDIGESTION 09/10/19 17:00 Albuterol Sulfate (Proventil, Ventolin Hfa) 2 puff Q4HP PRN INH SHORTNESS OF BREATH 09/11/19 10:15 Chlorpromazine HCl (Thorazine) 50 mg STAT STAT IM 09/12/19 11:45 09/12/19 11:50 DC 09/12/19 11:56 Fluphenazine HCl (Prolixin) 5 mg QHS PO 09/13/19 21:00 09/16/19 09:14 DC 09/15/19 20:18 Fluphenazine HCl (Prolixin) 10 mg QHS PO 09/16/19 21:00 Home Med (Med Rec Complete!) ASDIRECTED XX 09/10/19 17:45 09/10/19 17:43 DC [place] Carbonate (Eskalith Oral Solution) 150 mg BID PO 09/10/19 21:00 09/13/19 09:01 DC 09/12/19 20:30 [place] Carbonate (Eskalith Oral Solution) 300 mg BID PO 09/13/19 09:00 09/16/19 09:40 Lorazepam (Ativan) 1 mg STAT STAT IM 09/12/19 11:45 09/12/19 11:54 DC Lorazepam (Ativan) 2 mg STAT STAT IM 09/12/19 11:51 09/12/19 11:52 DC 09/12/19 11:55 Magnesium Hydroxide (Milk Of Magnesia) 30 ml DAILYPRN PRN PO CONSTIPATION 09/10/19 17:00 Trazodone HCl (Desyrel) 50 mg QHSP PRN PO INSOMNIA 09/10/19 17:00 Allergies Coded Allergies: bupropion (Verified Allergy, Intermediate, 09/06/19) MARKUS HATCH DO Sep 16, 2019 10:04
[2019-09-17 06:19] VITALS: BP 119/56
[2019-09-17] MEDS: LITHIUM CARBONATE 300MG/5ML(8MEQ/5ML)ORAL SOLUTION UDC PO SCH ×2 (08:58→20:55)
--- NOTE | 2019-09-17 13:05 | MHIPNPDOC ---
[facility] Progress Note Progress Note Inpatient Progress Note Maria Elena Fonseca MRN: N/A Date of : N/A Date of Service: 09/17/2019 History of Present Illness The patient is a 34-year-old woman who is rapidly readmitted after the patient decompensated when she was discharged. Is brought back, she is much more paranoid, aggressive and violent. When she is denied various underwear for head covering, she had been coded the previous evening. After her readmission she had subsequently left the unit where she then got into a strangers car and was refusing to leave. Unable to function without any assistance, she was brought back and readmitted. Interval History Psychiatric symptoms today: Affective: The patient denies any depressive symptoms today, does not appear to have very many manic symptoms in terms of distractibility, irritability, has les s pressured speech today Psychotic: Has less disorganization, less paranoia and is not as frightened of others or as aggressive, dark room cleanings Anxiety: The patient denies any significant anxiety Misc: Some improved bathing and hygiene behaviors Group Attendance: Attends groups frequently Medication Side effects: See ROS below Behavioral problems/significant events overnight: No notable events other than her normal irritability when things are cleaned overnight Staff Report: Some improvement, less disorganization, has been taking meds more consistently Review Of Systems Cardiovascular: Denies Chest pain or palpations GI: Denies Nausea, vomiting, or bowel changes Respiratory: Denies shortness of breath or cough Neuro: Denies dizziness, tremors Derm: Denies any rashes or pruritus MSK: Denies any muscle tightness or stiffness HEENT: Denies any vision changes or headaches Psychotherapy None on this visit. Vital Signs Reviewed. Mental Status Examination General: Improved hygiene Speech: Improved Thought processes: Improved MSK: No restlessness noted Thought content: Less bizarre Abstract reasoning, and computation: Improved Description of associations: Improved Description of abnormal or psychotic thoughts: Denies any suicidal or homicidal ideation. Denies auditory or visual hallucinations Judgment: Mildly improved Insight: Mildly improved Orientation: Alert and orientated 3 Cognition: Grossly normal Recent and remote memory: Intact Attention span and concentration: Improved Fund of knowledge: Unclear Mood: "okay" Affect: More euthymic Diagnoses Unspecified psychotic disorder. Assessment and Plan Unspecified psychiatric disorder: Continue 300 mg of lithium BID and fluphenazine 10 mg nightly. Will continue to observe. She is currently pending treatment of her objection, but has been more amenable. Disposition Observation over the weekend, continued monitoring of her improvement or lack thereof will be critical. She does tend to minimize and can hold some symptoms under control at times, thus a extended period of observation over the weekend will be needed to determine if she is ready to be discharged. Time Spent 15 minutes. Friday Vital Signs Vital Signs Date Time Temp Pulse Resp B/P (MAP) Pulse Ox O2 Delivery O2 Flow Rate FiO2 09/17/19 06:19 97.8 62 16 119/56 (77) Current Medications Current Medications Medications (Trade) Dose Ordered Sig/Alfredo Route PRN Reason Start Time Stop Time Status Last Admin Dose Admin Acetaminophen (Tylenol Tab) 650 mg Q6HP PRN PO HEADACHE or DISCOMFORT 09/10/19 17:00 Al Hydrox/Mg Hydrox/Simethicone (Mylanta) 30 ml Q4HP PRN PO HEARTBURN/INDIGESTION 09/10/19 17:00 Albuterol Sulfate (Proventil, Ventolin Hfa) 2 puff Q4HP PRN INH SHORTNESS OF BREATH 09/11/19 10:15 Chlorpromazine HCl (Thorazine) 50 mg STAT STAT IM 09/12/19 11:45 09/12/19 11:50 DC 09/12/19 11:56 Fluphenazine HCl (Prolixin) 5 mg QHS PO 09/13/19 21:00 09/16/19 09:14 DC 09/15/19 20:18 Fluphenazine HCl (Prolixin) 10 mg QHS PO 09/16/19 21:00 09/16/19 20:53 Home Med (Med Rec Complete!) ASDIRECTED XX 09/10/19 17:45 09/10/19 17:43 DC [place] Carbonate (Eskalith Oral Solution) 150 mg BID PO 09/10/19 21:00 09/13/19 09:01 DC 09/12/19 20:30 [place] Carbonate (Eskalith Oral Solution) 300 mg BID PO 09/13/19 09:00 09/17/19 08:58 Lorazepam (Ativan) 1 mg STAT STAT IM 09/12/19 11:45 09/12/19 11:54 DC Lorazepam (Ativan) 2 mg STAT STAT IM 09/12/19 11:51 09/12/19 11:52 DC 09/12/19 11:55 Magnesium Hydroxide (Milk Of Magnesia) 30 ml DAILYPRN PRN PO CONSTIPATION 09/10/19 17:00 Trazodone HCl (Desyrel) 50 mg QHSP PRN PO INSOMNIA 09/10/19 17:00 Allergies Coded Allergies: bupropion (Verified Allergy, Intermediate, 09/06/19) NASIR NUÑEZ DO Sep 17, 2019 13:05
[2019-09-18] MEDS: LITHIUM CARBONATE 300MG/5ML(8MEQ/5ML)ORAL SOLUTION UDC PO SCH ×2 (08:54→20:22)
[2019-09-19] MEDS: LITHIUM CARBONATE 300MG/5ML(8MEQ/5ML)ORAL SOLUTION UDC PO SCH ×2 (09:56→21:01)
[2019-09-20] MEDS: LITHIUM CARBONATE 300MG/5ML(8MEQ/5ML)ORAL SOLUTION UDC PO SCH ×2 (09:02→21:43)
[2019-09-20] MEDS ORDERED: PROPRANOLOL 10 MG TAB PO PRN (13:15)
[2019-09-21] MEDS: LITHIUM CARBONATE 300MG/5ML(8MEQ/5ML)ORAL SOLUTION UDC PO SCH ×2 (09:08→21:32)
--- NOTE | 2019-09-21 09:28 | MHIPNPDOC ---
[facility] Progress Note Progress Note Inpatient Progress Note Maria Elena Fonseca MRN: N/A Date of : N/A Date of Service: 09/21/2019 History of Present Illness The patient is a 34-year-old woman who is rapidly readmitted after the patient decompensated when she was discharged. Is brought back, she is much more paranoid, aggressive and violent. When she is denied various underwear for head covering, she had been coded the previous evening. After her readmission she had subsequently left the unit where she then got into a strangers car and was refusing to leave. Unable to function without any assistance, she was brought back and readmitted. Interval History Psychiatric symptoms today: Affective: The patient denies any symptoms of depression. Psychotic: The patient appears to have engaged in more hygiene behaviors and had showered the previous day. She is less tangential, more able to engage but still has flights of tangentiality. Anxiety: The patient denies any anxiety. Misc: The patient is improving somewhat in her ability to engage in her hygiene. Group Attendance: No group attends today. Reports that she feels sedated and was sleepy this morning. Medication Side effects: See ROS below Behavioral problems/significant events overnight: The patient appears to have lost some of her anger and has become less aggressive during cleaning. She is having better ability to be retracted, but still requires quite a bit of effort in order to engage her in bathing. Staff Report: The staff reports the patient still quite engaged in some tangential thinking, but has engaged a more hygiene behavior. She has been noted to be more social on the unit and less bizarre. She has met with and she reports to me that she is "fine." She is a little more slowed, less engaged in tangential thought but still has significant paranoia. Review Of Systems Cardiovascular: Denies Chest pain or palpations GI: Denies Nausea, vomiting, or bowel changes Neuro: Denies dizziness, tremors Derm: Denies any rashes or pruritus MSK: Denies any muscle tightness or stiffness HEENT: Denies any vision changes or headaches Psychotherapy None on this visit. Vital Signs Reviewed. Mental Status Examination General: Hygiene appears improved Speech: Still pressured, but somewhat less. Thought processes: Less tangential MSK: No restlessness noted Thought content: Less bizarre Abstract reasoning, and computation: Impaired Description of associations: Impaired Description of abnormal or psychotic thoughts: Denies any suicidal or homicidal ideation. Denies auditory or visual hallucinations Judgment: Impaired Insight: Impaired Orientation: Alert and orientated 3 Cognition: Grossly normal Recent and remote memory: Intact Attention span and concentration: Impaired Fund of knowledge: Unclear Mood: "okay" Affect: More euthymic Diagnoses Unspecified psychotic disorder. Assessment and Plan Unspecified psychotic disorder: Continue lithium 300 mg at night, discontinue morning dose. Continue fluphenazine. Continue to observe some improvement. Continue propranolol for anxiety 10 mg BID PRN. Disposition The patient will need a further inpatient admission due to her impairing psychosis. She is making some mild improvement, however, she is still unable to attend to base needs without significant prompting. Time Spent 15 minutes. Friday Vital Signs Vital Signs Date Time Temp Pulse Resp B/P (MAP) Pulse Ox O2 Delivery O2 Flow Rate FiO2 09/19/19 09:10 Room Air 09/17/19 06:19 97.8 62 16 119/56 (77) Current Medications Current Medications Medications (Trade) Dose Ordered Sig/Alfredo Route PRN Reason Start Time Stop Time Status Last Admin Dose Admin Acetaminophen (Tylenol Tab) 650 mg Q6HP PRN PO HEADACHE or DISCOMFORT 09/10/19 17:00 Al Hydrox/Mg Hydrox/Simethicone (Mylanta) 30 ml Q4HP PRN PO HEARTBURN/INDIGESTION 09/10/19 17:00 Albuterol Sulfate (Proventil, Ventolin Hfa) 2 puff Q4HP PRN INH SHORTNESS OF BREATH 09/11/19 10:15 Chlorpromazine HCl (Thorazine) 50 mg STAT STAT IM 09/12/19 11:45 09/12/19 11:50 DC 09/12/19 11:56 Fluphenazine HCl (Prolixin) 5 mg QHS PO 09/13/19 21:00 09/16/19 09:14 DC 09/15/19 20:18 Fluphenazine HCl (Prolixin) 10 mg QHS PO 09/16/19 21:00 09/20/19 21:43 Home Med (Med Rec Complete!) ASDIRECTED XX 09/10/19 17:45 09/10/19 17:43 DC [place] Carbonate (Eskalith Oral Solution) 150 mg BID PO 09/10/19 21:00 09/13/19 09:01 DC 09/12/19 20:30 [place] Carbonate (Eskalith Oral Solution) 300 mg BID PO 09/13/19 09:00 09/21/19 09:08 Lorazepam (Ativan) 1 mg STAT STAT IM 09/12/19 11:45 09/12/19 11:54 DC Lorazepam (Ativan) 2 mg STAT STAT IM 09/12/19 11:51 09/12/19 11:52 DC 09/12/19 11:55 Magnesium Hydroxide (Milk Of Magnesia) 30 ml DAILYPRN PRN PO CONSTIPATION 09/10/19 17:00 Propranolol HCl (Inderal) 10 mg BIDP PRN PO ANXIETY/AGITATION 09/20/19 13:15 Trazodone HCl (Desyrel) 50 mg QHSP PRN PO INSOMNIA 09/10/19 17:00 Allergies Coded Allergies: bupropion (Verified Allergy, Intermediate, 09/06/19) NASIR NUÑEZ DO Sep 21, 2019 09:28
--- NOTE | 2019-09-21 18:05 | MHIPNPDOC ---
[facility] Progress Note Progress Note Late entry for DOS 09/20/20 Inpatient Progress Note Maria Elena Fonseca MRN: N/A Date of : N/A Date of Service: 09/20/2019 History of Present Illness The patient is a 34-year-old woman who is rapidly readmitted after the patient decompensated when she was discharged. Is brought back, she is much more parano id, aggressive and violent. When she is denied various underwear for head covering, she had been coded the previous evening. After her readmission she had subsequently left the unit where she then got into a strangers car and was refusing to leave. Unable to function without any assistance, she was brought back and readmitted. Interval History Psychiatric symptoms today: Affective: The patient denies any symptoms of depression. Psychotic: The patient still has difficulty engaging in hygiene, still paranoid and has been talking to herself over the weekend, still quite tangential and unable to engage. Anxiety: The patient denies any anxiety. Misc: The patient still has difficulty engaging in any hygiene and is quite malodorous. Group Attendance: Attends groups frequently. Medication Side effects: See ROS below Behavioral problems/significant events overnight: The patient continues to have episodes of talking to herself, becoming aggressive when her room is cleaned and generally being unable to be redirected. Staff Report: The patient has been reported to still be quite psychotic and unable to care for herself. Her hygiene is still difficult where she is unable to engage. The patient is met with, however, she is quite angry that she will continued to be retained. Discussed with patient that she would need to request discharge if she would discharge via court hearing as she is not ready at this time. Review Of Systems Unable to engage due to patient's mental status. Psychotherapy None on this visit. Vital Signs Reviewed. Mental Status Examination General: Hygiene appears poor Speech: Pressured Thought processes: Tangential MSK: No restlessness noted Thought content: Less bizarre Abstract reasoning, and computation: Impaired Description of associations: Impaired Description of abnormal or psychotic thoughts: Denies any suicidal or homicidal ideation. Denies auditory or visual hallucinations Judgment: Impaired Insight: Impaired Orientation: Alert and orientated 3 Cognition: Grossly normal Recent and remote memory: Intact Attention span and concentration: Impaired Fund of knowledge: Unclear Mood: "okay" Affect: Irritable Diagnoses Unspecified psychotic disorder. Assessment and Plan Unspecified psychiatric disorder: Continue lithium 300 mg BID and fluphenazine 10 mg nightly, one likely need to pursue an order for tension as the patient still is quite unable to care for herself. Disposition The patient will need a further inpatient admission due to her severely impairing psychosis. She has made some progress at times, but appears to have decompensated over the weekend. Time Spent 25 minutes. Friday Vital Signs Vital Signs Date Time Temp Pulse Resp B/P (MAP) Pulse Ox O2 Delivery O2 Flow Rate FiO2 09/19/19 09:10 Room Air 09/17/19 06:19 97.8 62 16 119/56 (77) Current Medications Current Medications Medications (Trade) Dose Ordered Sig/Alfredo Route PRN Reason Start Time Stop Time Status Last Admin Dose Admin Acetaminophen (Tylenol Tab) 650 mg Q6HP PRN PO HEADACHE or DISCOMFORT 09/10/19 17:00 Al Hydrox/Mg Hydrox/Simethicone (Mylanta) 30 ml Q4HP PRN PO HEARTBURN/INDIGESTION 09/10/19 17:00 Albuterol Sulfate (Proventil, Ventolin Hfa) 2 puff Q4HP PRN INH SHORTNESS OF BREATH 09/11/19 10:15 Chlorpromazine HCl (Thorazine) 50 mg STAT STAT IM 09/12/19 11:45 09/12/19 11:50 DC 09/12/19 11:56 Fluphenazine HCl (Prolixin) 5 mg QHS PO 09/13/19 21:00 09/16/19 09:14 DC 09/15/19 20:18 Fluphenazine HCl (Prolixin) 10 mg QHS PO 09/16/19 21:00 09/20/19 21:43 Home Med (Med Rec Complete!) ASDIRECTED XX 09/10/19 17:45 09/10/19 17:43 DC [place] Carbonate (Eskalith Oral Solution) 150 mg BID PO 09/10/19 21:00 09/13/19 09:01 DC 09/12/19 20:30 [place] Carbonate (Eskalith Oral Solution) 300 mg BID PO 09/13/19 09:00 09/21/19 09:08 Lorazepam (Ativan) 1 mg STAT STAT IM 09/12/19 11:45 09/12/19 11:54 DC Lorazepam (Ativan) 2 mg STAT STAT IM 09/12/19 11:51 09/12/19 11:52 DC 09/12/19 11:55 Magnesium Hydroxide (Milk Of Magnesia) 30 ml DAILYPRN PRN PO CONSTIPATION 09/10/19 17:00 Propranolol HCl (Inderal) 10 mg BIDP PRN PO ANXIETY/AGITATION 09/20/19 13:15 Trazodone HCl (Desyrel) 50 mg QHSP PRN PO INSOMNIA 09/10/19 17:00 Allergies Coded Allergies: bupropion (Verified Allergy, Intermediate, 09/06/19) NASIR NUÑEZ DO Sep 21, 2019 18:05
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
[2019-09-22] MEDS: LITHIUM CARBONATE 300MG/5ML(8MEQ/5ML)ORAL SOLUTION UDC PO SCH (21:04)
--- NOTE | 2019-09-23 10:53 | MHIPNPDOC ---
[facility] Progress Note Progress Note Inpatient Progress Note Maria Elena Fonseca MRN: N/A Date of : N/A Date of Service: 09/23/2019 History of Present Illness The patient is a 34-year-old woman who is rapidly readmitted after the patient decompensated when she was discharged. Is brought back, she is much more paranoid, aggressive and violent. When she is denied various underwear for head covering, she had been coded the previous evening. After her readmission she had subsequently left the unit where she then got into a strangers car and was refusing to leave. Unable to function without any assistance, she was brought back and readmitted. Interval History Psychiatric symptoms today: Affective: Unable to determine due to patient's tangentiality. Psychotic: The patient appears more intrusive, disorganized, unable to discuss anything relevant. She has been cheeking her medications, but refuses to discuss this. Anxiety: The patient denies any anxiety. Misc: The patient has been unable to engage any hygiene and even with significant prompting refuses. Group Attendance: She has not been attending groups. Medication Side effects: See ROS below. Behavioral problems/significant events overnight: The patient still has some anger and intrusiveness invading most conversations around her, especially with staff. Staff Report: The patient has been discovered to be disposing of her medications, became quite aggressive when confronted about this. She has become so intrusive that it is difficult to have conversations in her general area without her intruding into them. Demanding various papers and other things. Review Of Systems Unable to determine due to mental status. Psychotherapy None on this visit. Vital Signs Reviewed. Mental Status Examination General: Hygiene decompensated Speech: Pressured Thought processes: Tangential MSK: No restlessness noted Thought content: Bizarre and paranoid Abstract reasoning, and computation: Impaired Description of associations: Impaired Description of abnormal or psychotic thoughts: Unable to determine Judgment: Impaired Insight: Impaired Orientation: Alert and orientated 3 Cognition: Grossly normal Recent and remote memory: Intact Attention span and concentration: Impaired Fund of knowledge: Unclear Mood: "I want to look at my chart" Affect: More irritable Diagnoses Unspecified psychotic disorder. Assessment and Plan Unspecified psychotic disorder: Continue to offer fluphenazine 10 mg nightly, lithium 300 mg at night and propranolol 10 mg BID PRN. We will pursue treatment over objection as patient has been cheeking her medications. Disposition The patient will need a further inpatient admission due to her severely impairing psychosis, much more likely schizophrenia than bipolar at this time but schizoaffective disorder cannot be ruled out. The patient is wholly unable to care for herself and cannot coordinate basic things needed in order to survive as an outpatient. Time Spent 15 minutes. Vital Signs Vital Signs Date Time Temp Pulse Resp B/P (MAP) Pulse Ox O2 Delivery O2 Flow Rate FiO2 09/23/19 09:43 Room Air 09/17/19 06:19 97.8 62 16 119/56 (77) Current Medications Current Medications Medications (Trade) Dose Ordered Sig/Alfredo Route PRN Reason Start Time Stop Time Status Last Admin Dose Admin Acetaminophen (Tylenol Tab) 650 mg Q6HP PRN PO HEADACHE or DISCOMFORT 09/10/19 17:00 Al Hydrox/Mg Hydrox/Simethicone (Mylanta) 30 ml Q4HP PRN PO HEARTBURN/INDIGESTION 09/10/19 17:00 Albuterol Sulfate (Proventil, Ventolin Hfa) 2 puff Q4HP PRN INH SHORTNESS OF BREATH 09/11/19 10:15 Chlorpromazine HCl (Thorazine) 50 mg STAT STAT IM 09/12/19 11:45 09/12/19 11:50 DC 09/12/19 11:56 Fluphenazine HCl (Prolixin) 5 mg QHS PO 09/13/19 21:00 09/16/19 09:14 DC 09/15/19 20:18 Fluphenazine HCl (Prolixin) 10 mg QHS PO 09/16/19 21:00 09/21/19 21:32 Home Med (Med Rec Complete!) ASDIRECTED XX 09/10/19 17:45 09/10/19 17:43 DC [place] Carbonate (Eskalith Oral Solution) 150 mg BID PO 09/10/19 21:00 09/13/19 09:01 DC 09/12/19 20:30 [place] Carbonate (Eskalith Oral Solution) 300 mg BID PO 09/13/19 09:00 09/21/19 18:36 DC 09/21/19 09:08 [place] Carbonate (Eskalith Oral Solution) 300 mg QHS PO 09/21/19 21:00 09/22/19 21:04 Lorazepam (Ativan) 1 mg STAT STAT IM 09/12/19 11:45 09/12/19 11:54 DC Lorazepam (Ativan) 2 mg STAT STAT IM 09/12/19 11:51 09/12/19 11:52 DC 09/12/19 11:55 [place] Hydroxide (Milk Of Magnesia) 30 ml DAILYPRN PRN PO CONSTIPATION 09/10/19 17:00 Propranolol HCl (Inderal) 10 mg BIDP PRN PO ANXIETY/AGITATION 09/20/19 13:15 Trazodone HCl (Desyrel) 50 mg QHSP PRN PO INSOMNIA 09/10/19 17:00 Allergies Coded Allergies: bupropion (Verified Allergy, Intermediate, 09/06/19) NASIR NUÑEZ DO Sep 23, 2019 10:53
[2019-09-23] MEDS: LITHIUM CARBONATE 300MG/5ML(8MEQ/5ML)ORAL SOLUTION UDC PO SCH (21:50)
--- NOTE | 2019-09-24 11:06 | MHIPNPDOC ---
[facility] Progress Note Progress Note Inpatient Progress Note Maria Elena Fonseca MRN: N/A Date of : N/A Date of Service: 09/24/2019 History of Present Illness The patient is a 34-year-old woman who is rapidly readmitted after the patient decompensated when she was discharged. Is brought back, she is much more paranoid, aggressive and violent. When she is denied various underwear for head covering, she had been coded the previous evening. After her readmission she had subsequently left the unit where she then got into a strangers car and was refusing to leave. Unable to function without any assistance, she was brought back and readmitted. Interval History Psychiatric symptoms today: The patient continues to perseverate on the events that led her to it and is unable to be refocused on any attempts at improving. She had declined to take any of her medications after being found to be cheating them. Affective: The patient does not report any symptoms of depression. Psychotic: The patient still tangential, disorganized, intrusive, difficult to redirect at times. Misc: The patient still has difficulty to engage in and has significant staff splitting behavior. Group Attendance: The patient has been attending groups now but only for a very short period time at the end. Medication Side effects: See ROS below Behavioral problems/significant events overnight: The patient still has intrusiveness being difficult to redirect attempts led among various staff. Staff Report: The patient reports that she has been disposing of her medications, has become much more intrusive, demanding and difficult to control. Review Of Systems Unable to determine due to patient's tangentiality. Psychotherapy None on this visit. Vital Signs Reviewed. Mental Status Examination General: Well dressed with good hygiene Speech: Spontaneous and fluid Thought processes: Linear and logical MSK: Smooth and coordinated gait, no signs of tremors or involuntary orofacial movements Thought content: Still bizarre, still seems to make explanations for every conceivable problem which appear highly unlikely, unable to be redirected. Abstract reasoning, and computation: Intact Description of associations: Intact Description of abnormal or psychotic thoughts: Mixed, no threats towards herself or others at this time. Judgment: fair Insight: fair Orientation: Alert and orientated 3 Cognition: Grossly normal Recent and remote memory: Intact Attention span and concentration: Intact Fund of knowledge: Adequate Mood: "Is there any way I can be discharged." Affect: More euthymic, less irritable. Diagnoses Unspecified psychotic disorder. Assessment and Plan Unspecified psychotic disorder: Continue to offer fluphenazine 10 mg nightly, lithium 300 mg at night and propranolol 10 mg BID PRN. We will pursue treatment over objection as patient has been cheeking her medications. Disposition The patient will need a further inpatient admission due to her severely impairing psychosis, much more likely schizophrenia than bipolar at this time but schizoaffective disorder cannot be ruled out. The patient is wholly unable to care for herself and cannot coordinate basic things needed in order to survive as an outpatient. Time Spent 15 minutes. Friday Vital Signs Vital Signs Date Time Temp Pulse Resp B/P (MAP) Pulse Ox O2 Delivery O2 Flow Rate FiO2 09/23/19 09:43 Room Air Current Medications Current Medications Medications (Trade) Dose Ordered Sig/Alfredo Route PRN Reason Start Time Stop Time Status Last Admin Dose Admin Acetaminophen (Tylenol Tab) 650 mg Q6HP PRN PO HEADACHE or DISCOMFORT 09/10/19 17:00 Al Hydrox/Mg Hydrox/Simethicone (Mylanta) 30 ml Q4HP PRN PO HEARTBURN/INDIGESTION 09/10/19 17:00 Albuterol Sulfate (Proventil, Ventolin Hfa) 2 puff Q4HP PRN INH SHORTNESS OF BREATH 09/11/19 10:15 Chlorpromazine HCl (Thorazine) 50 mg STAT STAT IM 09/12/19 11:45 09/12/19 11:50 DC 09/12/19 11:56 Fluphenazine HCl (Prolixin) 5 mg QHS PO 09/13/19 21:00 09/16/19 09:14 DC 09/15/19 20:18 Fluphenazine HCl (Prolixin) 10 mg QHS PO 09/16/19 21:00 09/21/19 21:32 Home Med (Med Rec Complete!) ASDIRECTED XX 09/10/19 17:45 09/10/19 17:43 DC [place] Carbonate (Eskalith Oral Solution) 150 mg BID PO 09/10/19 21:00 09/13/19 09:01 DC 09/12/19 20:30 [place] Carbonate (Eskalith Oral Solution) 300 mg BID PO 09/13/19 09:00 09/21/19 18:36 DC 09/21/19 09:08 [place] Carbonate (Eskalith Oral Solution) 300 mg QHS PO 09/21/19 21:00 09/23/19 21:50 Lorazepam (Ativan) 1 mg STAT STAT IM 09/12/19 11:45 09/12/19 11:54 DC Lorazepam (Ativan) 2 mg STAT STAT IM 09/12/19 11:51 09/12/19 11:52 DC 09/12/19 11:55 Magnesium Hydroxide (Milk Of Magnesia) 30 ml DAILYPRN PRN PO CONSTIPATION 09/10/19 17:00 Propranolol HCl (Inderal) 10 mg BIDP PRN PO ANXIETY/AGITATION 09/20/19 13:15 Trazodone HCl (Desyrel) 50 mg QHSP PRN PO INSOMNIA 09/10/19 17:00 Allergies Coded Allergies: bupropion (Verified Allergy, Intermediate, 09/06/19) NASIR NUÑEZ DO Sep 24, 2019 11:06
[2019-09-24] MEDS: LITHIUM CARBONATE 300MG/5ML(8MEQ/5ML)ORAL SOLUTION UDC PO SCH (21:00)
[2019-09-25] MEDS: LITHIUM CARBONATE 300MG/5ML(8MEQ/5ML)ORAL SOLUTION UDC PO SCH (21:00)
[2019-09-26] MEDS: LITHIUM CARBONATE 300MG/5ML(8MEQ/5ML)ORAL SOLUTION UDC PO SCH (20:29)
--- NOTE | 2019-09-27 09:01 | MHIPNPDOC ---
[facility] Progress Note Progress Note Inpatient Progress Note Maria Elena Fonseca MRN: N/A Date of : N/A Date of Service: 09/27/2019 History of Present Illness The patient is a 34-year-old woman who is rapidly readmitted after the patient decompensated when she was discharged. Is brought back, she is much more paranoid, aggressive and violent. When she is denied various underwear for head covering, she had been coded the previous evening. After her readmission she had subsequently left the unit where she then got into a strangers car and was refusing to leave. Unable to function without any assistance, she was brought back and readmitted. Interval History Psychiatric symptoms today: The patient is met with, however, she continues to attempt to want to get discharge, still has difficulty with any insight to the situation. Affective: The patient does not endorse any symptoms of depression. Psychotic: The patient is tangential, disorganized, intrusive and unable to re direct at times. Misc: The patient's sleeping behavior is still sparse with only 2 hours of sleep at night. Group Attendance: Intimate group attendance. Medication Side effects: See ROS below Behavioral problems/significant events overnight: The patient still has difficulty becoming significantly agitated multiple times when frustrated with cleaning or any lack of access to her almond milk. Staff Report: The patient still has difficulty being demanding, manipulative and disorganized. Review Of Systems Not taking any current medications. Psychotherapy None on this visit. Vital Signs Reviewed. Mental Status Examination General: Poor hygiene. Speech: Spontaneous and fluid Thought processes: Linear and logical MSK: Smooth and coordinated gait, no signs of tremors or involuntary orofacial movements Thought content: Still bizarre, still seems to make explanations for every con ceivable problem which appear highly unlikely, unable to be redirected. Abstract reasoning, and computation: Impaired. Description of associations: Impaired. Description of abnormal or psychotic thoughts: Makes no threats towards herself or others. Judgment: Impaired. Insight: Impaired. Orientation: Alert and orientated 3 Cognition: Grossly normal Recent and remote memory: Intact Attention span and concentration: Intact Fund of knowledge: Adequate Mood: "I'm still trying to get discharged." Affect: Irritable at times. Diagnoses Unspecified psychotic disorder. Assessment and Plan Unspecified psychotic disorder: Continue to offer fluphenazine 10 mg nightly, lithium 300 mg at night and propranolol 10 mg BID PRN. We will pursue treatment over objection as patient has been cheeking her medications. Disposition The patient will need a further inpatient admission due to her severely impairing psychosis, much more likely schizophrenia than bipolar at this time but schizoaffective disorder cannot be ruled out. The patient is wholly unable to care for herself and cannot coordinate basic things needed in order to survive as an outpatient. Time Spent 15 minutes. Friday Vital Signs Vital Signs Date Time Temp Pulse Resp B/P (MAP) Pulse Ox O2 Delivery O2 Flow Rate FiO2 09/23/19 09:43 Room Air Current Medications Current Medications Medications (Trade) Dose Ordered Sig/Alfredo Route PRN Reason Start Time Stop Time Status Last Admin Dose Admin Acetaminophen (Tylenol Tab) 650 mg Q6HP PRN PO HEADACHE or DISCOMFORT 09/10/19 17:00 Al Hydrox/Mg Hydrox/Simethicone (Mylanta) 30 ml Q4HP PRN PO HEARTBURN/INDIGESTION 09/10/19 17:00 Albuterol Sulfate (Proventil, Ventolin Hfa) 2 puff Q4HP PRN INH SHORTNESS OF BREATH 09/11/19 10:15 Chlorpromazine HCl (Thorazine) 50 mg STAT STAT IM 09/12/19 11:45 09/12/19 11:50 DC 09/12/19 11:56 Fluphenazine HCl (Prolixin) 5 mg QHS PO 09/13/19 21:00 09/16/19 09:14 DC 09/15/19 20:18 Fluphenazine HCl (Prolixin) 10 mg QHS PO 09/16/19 21:00 09/21/19 21:32 Home Med (Med Rec Complete!) ASDIRECTED XX 09/10/19 17:45 09/10/19 17:43 DC [place] Carbonate (Eskalith Oral Solution) 150 mg BID PO 09/10/19 21:00 09/13/19 09:01 DC 09/12/19 20:30 [place] Carbonate (Eskalith Oral Solution) 300 mg BID PO 09/13/19 09:00 09/21/19 18:36 DC 09/21/19 09:08 [place] Carbonate (Eskalith Oral Solution) 300 mg QHS PO 09/21/19 21:00 09/26/19 20:29 Lorazepam (Ativan) 1 mg STAT STAT IM 09/12/19 11:45 09/12/19 11:54 DC Lorazepam (Ativan) 2 mg STAT STAT IM 09/12/19 11:51 09/12/19 11:52 DC 09/12/19 11:55 Magnesium Hydroxide (Milk Of Magnesia) 30 ml DAILYPRN PRN PO CONSTIPATION 09/10/19 17:00 Propranolol HCl (Inderal) 10 mg BIDP PRN PO ANXIETY/AGITATION 09/20/19 13:15 Trazodone HCl (Desyrel) 50 mg QHSP PRN PO INSOMNIA 09/10/19 17:00 Allergies Coded Allergies: bupropion (Verified Allergy, Intermediate, 09/06/19) NASIR NUÑEZ DO Sep 27, 2019 09:01
[2019-09-27] MEDS: LITHIUM CARBONATE 300MG/5ML(8MEQ/5ML)ORAL SOLUTION UDC PO SCH (21:23)
--- NOTE | 2019-09-28 10:45 | MHIPNPDOC ---
[facility] Progress Note Progress Note Inpatient Progress Note Maria Elena Fonseca MRN: N/A Date of : N/A Date of Service: 09/28/2019 History of Present Illness The patient is a 34-year-old woman who is rapidly readmitted after the patient decompensated when she was discharged. Is brought back, she is much more paranoid, aggressive and violent. When she is denied various underwear for head covering, she had been coded the previous evening. After her readmission she had subsequently left the unit where she then got into a strangers car and was refusing to leave. Unable to function without any assistance, she was brought back and readmitted. Interval History Psychiatric symptoms today: The patient is attempted to be met with today; however, she is quite agitated, yelling at this provider multiple times, and thus is unable to be interviewed due to her agitation. Affective: The patient does not endorse any symptoms of depression. Psychotic: The patient is tangential, disorganized, intrusive and unable to redirect at times. Misc: The patient's sleeping behavior is still sparse with only 2 hours of sleep at night. Group Attendance: Intimate group attendance. Medication Side effects: See ROS below Behavioral problems/significant events overnight: The patient still has difficulty becoming significantly agitated multiple times when frustrated with cleaning or any lack of access to her almond milk. Staff Report: The patient still has difficulty being demanding, manipulative and disorganized. Review Of Systems Unable to determine due to agitation. Psychotherapy None on this visit. Vital Signs Reviewed. Mental Status Examination General: Poor hygiene. Speech: Spontaneous and fluid Thought processes: Linear at times, but becomes circumstantial and tangential quickly. MSK: Smooth and coordinated gait, no signs of tremors or involuntary orofacial movements Thought content: Significant paranoid thoughts. Abstract reasoning, and computation: Impaired. Description of associations: Impaired. Description of abnormal or psychotic thoughts: Significant paranoid thoughts. Judgment: Impaired. Insight: Impaired. Orientation: Alert and orientated 3 Cognition: Grossly normal Recent and remote memory: Intact Attention span and concentration: Intact Fund of knowledge: Adequate Mood: "You guys are all against me." Affect: Irritable at times. Diagnoses Unspecified psychotic disorder. Assessment and Plan Unspecified psychotic disorder: Continue to offer fluphenazine 10 mg nightly, lithium 300 mg at night and propranolol 10 mg BID PRN. We will pursue treatment over objection as patient has been cheeking her medications. Disposition The patient will need a further inpatient admission due to her severely impairing psychosis, much more likely schizophrenia than bipolar at this time but schizoaffective disorder cannot be ruled out. The patient is wholly unable to care for herself and cannot coordinate basic things needed in order to survive as an outpatient. Time Spent 15 minutes. Friday Vital Signs Vital Signs Date Time Temp Pulse Resp B/P (MAP) Pulse Ox O2 Delivery O2 Flow Rate FiO2 09/23/19 09:43 Room Air Current Medications Current Medications Medications (Trade) Dose Ordered Sig/Alfredo Route PRN Reason Start Time Stop Time Status Last Admin Dose Admin Acetaminophen (Tylenol Tab) 650 mg Q6HP PRN PO HEADACHE or DISCOMFORT 09/10/19 17:00 Al Hydrox/Mg Hydrox/Simethicone (Mylanta) 30 ml Q4HP PRN PO HEARTBURN/INDIGESTION 09/10/19 17:00 Albuterol Sulfate (Proventil, Ventolin Hfa) 2 puff Q4HP PRN INH SHORTNESS OF BREATH 09/11/19 10:15 Chlorpromazine HCl (Thorazine) 50 mg STAT STAT IM 09/12/19 11:45 09/12/19 11:50 DC 09/12/19 11:56 Fluphenazine HCl (Prolixin) 5 mg QHS PO 09/13/19 21:00 09/16/19 09:14 DC 09/15/19 20:18 Fluphenazine HCl (Prolixin) 10 mg QHS PO 09/16/19 21:00 09/21/19 21:32 Home Med (Med Rec Complete!) ASDIRECTED XX 09/10/19 17:45 09/10/19 17:43 DC [place] Carbonate (Eskalith Oral Solution) 150 mg BID PO 09/10/19 21:00 09/13/19 09:01 DC 09/12/19 20:30 [place] Carbonate (Eskalith Oral Solution) 300 mg BID PO 09/13/19 09:00 09/21/19 18:36 DC 09/21/19 09:08 [place] Carbonate (Eskalith Oral Solution) 300 mg QHS PO 09/21/19 21:00 09/27/19 21:23 Lorazepam (Ativan) 1 mg STAT STAT IM 09/12/19 11:45 09/12/19 11:54 DC Lorazepam (Ativan) 2 mg STAT STAT IM 09/12/19 11:51 09/12/19 11:52 DC 09/12/19 11:55 Magnesium Hydroxide (Milk Of Magnesia) 30 ml DAILYPRN PRN PO CONSTIPATION 09/10/19 17:00 Propranolol HCl (Inderal) 10 mg BIDP PRN PO ANXIETY/AGITATION 09/20/19 13:15 Trazodone HCl (Desyrel) 50 mg QHSP PRN PO INSOMNIA 09/10/19 17:00 Allergies Coded Allergies: bupropion (Verified Allergy, Intermediate, 09/06/19) NASIR NUÑEZ DO Sep 28, 2019 10:45
[2019-09-28] MEDS: LITHIUM CARBONATE 300MG/5ML(8MEQ/5ML)ORAL SOLUTION UDC PO SCH (21:44)
--- NOTE | 2019-09-29 12:47 | MHIPNPDOC ---
[facility] Progress Note Progress Note Inpatient Progress Note Maria Elena Fonseca MRN: N/A Date of : N/A Date of Service: 09/29/2019 History of Present Illness The patient is a 34-year-old woman who is rapidly readmitted after the patient decompensated when she was discharged. Is brought back, she is much more paranoid, aggressive and violent. When she is denied various underwear for head covering, she had been coded the previous evening. After her readmission she had subsequently left the unit where she then got into a strangers car and was refusing to leave. Unable to function without any assistance, she was brought back and readmitted. Interval History Psychiatric symptoms today: The patient is brought to court today where she is retained and treatment over objection is approved. After re-returned from court, the patient is agitated, yelling, paranoid and difficult to redirect stating that she felt everyone who had testified was "lying under oath." Affective: Unknown at this time. Psychotic: The patient is tangential, disorganized, intrusive and unable to redirect at times. Misc: The patient's sleeping behavior is still sparse with only 2 hours of sleep at night. Group Attendance: Intermittent group attendance. Medication Side effects: See ROS below Behavioral problems/significant events overnight: The patient had significant difficulty organizing herself in order to present to court and nearly was coded prior to going to court. Staff Report: The patient still has difficulty being demanding, manipulative and disorganized. Review Of Systems Unable to determine due to mental status. Psychotherapy None on this visit. Vital Signs Reviewed. Mental Status Examination General: Poor hygiene. Speech: Spontaneous and fluid Thought processes: Linear at times, but becomes circumstantial and tangential quickly. MSK: Smooth and coordinated gait, no signs of tremors or involuntary orofacial movements Thought content: Significant paranoid thoughts. Abstract reasoning, and computation: Impaired. Description of associations: Impaired. Description of abnormal or psychotic thoughts: Significant paranoid thoughts. Judgment: Impaired. Insight: Impaired. Orientation: Alert and orientated 3 Cognition: Grossly normal Recent and remote memory: Intact Attention span and concentration: Intact Fund of knowledge: Adequate Mood: "Patients have rights, you are against me!" Affect: Irritable at times. Diagnoses Unspecified psychotic disorder. Assessment and Plan Unspecified psychotic disorder: We will offer fluphenazine 10 mg nightly and lithium as well as propranolol treatment, however, objection order will be issued tomorrow of which the patient will be given 10 mg IM. If she refuses, we will pursue treatment over objection as patient has been taking her medications. Disposition The patient will need a further inpatient admission as she is still distorted and disorganized. Referral to [facility] will be undertaken at this time due to her likely need for long-term care. She was kept on retention at this time under a court order. Time Spent 10 minutes, 2 hours of coordination of care/court time. Friday Vital Signs Vital Signs Date Time Temp Pulse Resp B/P (MAP) Pulse Ox O2 Delivery O2 Flow Rate FiO2 09/23/19 09:43 Room Air Current Medications Current Medications Medications (Trade) Dose Ordered Sig/Alfredo Route PRN Reason Start Time Stop Time Status Last Admin Dose Admin Acetaminophen (Tylenol Tab) 650 mg Q6HP PRN PO HEADACHE or DISCOMFORT 09/10/19 17:00 Al Hydrox/Mg Hydrox/Simethicone (Mylanta) 30 ml Q4HP PRN PO HEARTBURN/INDIGESTION 09/10/19 17:00 Albuterol Sulfate (Proventil, Ventolin Hfa) 2 puff Q4HP PRN INH SHORTNESS OF BREATH 09/11/19 10:15 Chlorpromazine HCl (Thorazine) 50 mg STAT STAT IM 09/12/19 11:45 09/12/19 11:50 DC 09/12/19 11:56 Fluphenazine HCl (Prolixin) 5 mg QHS PO 09/13/19 21:00 09/16/19 09:14 DC 09/15/19 20:18 Fluphenazine HCl (Prolixin) 10 mg QHS PO 09/16/19 21:00 09/21/19 21:32 Home Med (Med Rec Complete!) ASDIRECTED XX 09/10/19 17:45 09/10/19 17:43 DC [place] Carbonate (Eskalith Oral Solution) 150 mg BID PO 09/10/19 21:00 09/13/19 09:01 DC 09/12/19 20:30 [place] Carbonate (Eskalith Oral Solution) 300 mg BID PO 09/13/19 09:00 09/21/19 18:36 DC 09/21/19 09:08 [place] Carbonate (Eskalith Oral Solution) 300 mg QHS PO 09/21/19 21:00 09/28/19 21:44 Lorazepam (Ativan) 1 mg STAT STAT IM 09/12/19 11:45 09/12/19 11:54 DC Lorazepam (Ativan) 2 mg STAT STAT IM 09/12/19 11:51 09/12/19 11:52 DC 09/12/19 11:55 [place] Hydroxide (Milk Of Magnesia) 30 ml DAILYPRN PRN PO CONSTIPATION 09/10/19 17:00 Propranolol HCl (Inderal) 10 mg BIDP PRN PO ANXIETY/AGITATION 09/20/19 13:15 Trazodone HCl (Desyrel) 50 mg QHSP PRN PO INSOMNIA 09/10/19 17:00 Allergies Coded Allergies: bupropion (Verified Allergy, Intermediate, 09/06/19) NASIR NUÑEZ DO Sep 29, 2019 12:47
[2019-09-29] MEDS ORDERED: NON-FORMULARY 1 EA EA IM SCH (15:45)
[2019-09-29] MEDS: LITHIUM CARBONATE 300MG/5ML(8MEQ/5ML)ORAL SOLUTION UDC PO SCH (21:03)
--- NOTE | 2019-09-30 10:44 | MHIPNPDOC ---
[facility] Progress Note Progress Note Inpatient Progress Note Maria Elena Fonseca MRN: N/A Date of : N/A Date of Service: 09/30/2019 History of Present Illness The patient is a 34-year-old woman who is rapidly readmitted after the patient decompensated when she was discharged. Is brought back, she is much more paranoid, aggressive and violent. When she is denied various underwear for head covering, she had been coded the previous evening. After her readmission she had subsequently left the unit where she then got into a strangers car and was refusing to leave. Unable to function without any assistance, she was brought back and readmitted. Interval History Psychiatric symptoms today: The patient is met with today with nurse Myesha who accompanies me during the visit. The patient reported she is more amenable to meeting. The patient is met with briefly where her medicated options are discussed. She had taken the fluphenazine last night willingly. She was served with treatment over objection papers. She appears less agitated today and mildly more amenable. Affective: The patient reports feeling hopeless at times since the court hearing, however, reported some fleeting SI, but not currently. Psychotic: The patient is less disorganized and intrusive. Misc: The patient has been sleeping more. She only appears to sleep 2 hours a night, slept a majority of the day after taking the medications. Group Attendance: Still have fair group attendance. Medication Side effects: See ROS below Behavioral problems/significant events overnight: None reported. Staff Report: The patient has to become more less intrusive by report. Review Of Systems General: The patient reports some sedation as above. Denies fever. Cardiovascular: Denies Chest pain or palpations GI: Denies Nausea, vomiting, or bowel changes Respiratory: Denies shortness of breath or cough Neuro: Denies dizziness, tremors Derm: Denies any rashes or pruritus : Denies any dysuria or urinary problems MSK: Denies any muscle tightness or stiffness HEENT: Denies any vision changes or headaches Psychotherapy None on this visit. Vital Signs Reviewed. Mental Status Examination General: Appears to have continued poor hygiene. Speech: Spontaneous and fluid Thought processes: Linear at times. MSK: Smooth and coordinated gait, no signs of tremors or involuntary orofacial movements Thought content: Paranoia does not appear as evident. Abstract reasoning, and computation: Impaired. Description of associations: Improved. Description of abnormal or psychotic thoughts: As above for suicide. Denies homicidal or auditory or visual hallucination. Judgment: Appears still impaired. Insight: Appears still impaired. Orientation: Alert and orientated 3 Cognition: Grossly normal Recent and remote memory: Intact Attention span and concentration: Intact Fund of knowledge: Adequate Mood: "Hello." Affect: Less irritable. Diagnoses Unspecified psychotic disorder. Assessment and Plan Unspecified psychotic disorder: Continue fluphenazine 10 mg nightly and lithium treatment, however, objection order will be placed in. We will offer patient Provigil 25 mg tomorrow to discuss, benefits, and potential side effects as well with patient in order to treat sedation. Disposition The patient will need a further inpatient admission as she is still distorted and disorganized. Referral to [facility] will be undertaken at this time due to her likely need for long-term care. She was kept on retention at this time under a court order. Time Spent 20 minutes [id number]. Current Medications Current Medications Medications (Trade) Dose Ordered Sig/Alfredo Route PRN Reason Start Time Stop Time Status Last Admin Dose Admin Acetaminophen (Tylenol Tab) 650 mg Q6HP PRN PO HEADACHE or DISCOMFORT 09/10/19 17:00 Al Hydrox/Mg Hydrox/Simethicone (Mylanta) 30 ml Q4HP PRN PO HEARTBURN/INDIGESTION 09/10/19 17:00 Albuterol Sulfate (Proventil, Ventolin Hfa) 2 puff Q4HP PRN INH SHORTNESS OF BREATH 09/11/19 10:15 Chlorpromazine HCl (Thorazine) 50 mg STAT STAT IM 09/12/19 11:45 09/12/19 11:50 DC 09/12/19 11:56 Fluphenazine HCl (Prolixin) 5 mg QHS PO 09/13/19 21:00 09/16/19 09:14 DC 09/15/19 20:18 Fluphenazine HCl (Prolixin) 10 mg QHS PO 09/16/19 21:00 09/29/19 21:04 Home Med (Med Rec Complete!) ASDIRECTED XX 09/10/19 17:45 09/10/19 17:43 DC [place] Carbonate (Eskalith Oral Solution) 150 mg BID PO 09/10/19 21:00 09/13/19 09:01 DC 09/12/19 20:30 [place] Carbonate (Eskalith Oral Solution) 300 mg BID PO 09/13/19 09:00 09/21/19 18:36 DC 09/21/19 09:08 [place] Carbonate (Eskalith Oral Solution) 300 mg QHS PO 09/21/19 21:00 09/29/19 21:03 Lorazepam (Ativan) 1 mg STAT STAT IM 09/12/19 11:45 09/12/19 11:54 DC Lorazepam (Ativan) 2 mg STAT STAT IM 09/12/19 11:51 09/12/19 11:52 DC 09/12/19 11:55 Magnesium Hydroxide (Milk Of Magnesia) 30 ml DAILYPRN PRN PO CONSTIPATION 09/10/19 17:00 Non-Formulary Medication 1 ea ASDIRECTED IM 09/29/19 15:45 UNV Propranolol HCl (Inderal) 10 mg BIDP PRN PO ANXIETY/AGITATION 09/20/19 13:15 Trazodone HCl (Desyrel) 50 mg QHSP PRN PO INSOMNIA 09/10/19 17:00 Allergies Coded Allergies: bupropion (Verified Allergy, Intermediate, 09/06/19) NASIR NUÑEZ DO Sep 30, 2019 10:44
[2019-09-30] MEDS ORDERED: MULTI IM PRN (17:00)
[2019-09-30] MEDS ORDERED: FLUPHENAZINE 2.5 MG/ML IM PRN (17:00)
[2019-09-30] MEDS: LITHIUM CARBONATE 300MG/5ML(8MEQ/5ML)ORAL SOLUTION UDC PO SCH (20:56)
[2019-10-01] MEDS: MODAFINIL 100 MG TABLET PO SCH (08:58)
--- NOTE | 2019-10-01 10:10 | MHIPNPDOC ---
[facility] Progress Note Progress Note Inpatient Progress Note Maria Elena Fonseca MRN: N/A Date of : N/A Date of Service: 10/01/2019 History of Present Illness The patient is a 34-year-old woman who is rapidly readmitted after the patient decompensated when she was discharged. Is brought back, she is much more paranoid, aggressive and violent. When she is denied various underwear for head covering, she had been coded the previous evening. After her readmission she had subsequently left the unit where she then got into a strangers car and was refusing to leave. Unable to function without any assistance, she was brought back and readmitted. Interval History Psychiatric symptoms today: The patient is met with. She continues to make unusual statements about her side effects, stating that she had various symptoms such as tongue swelling and muscle tightness, however, on observation by multiple staff members, she demonstrates to have signs objectively of this. Affective: The patient reports no significant depressed mood today. Psychotic: The patient appears less disorganized and intrusive and more amenable. Misc: The patient's sleep still appears disrupted, but has been sleeping somewhat more. Group Attendance: Still have fair group attendance. Medication Side effects: See ROS below Behavioral problems/significant events overnight: None reported. Staff Report: As above, patient has made multiple complaints after starting Provigil today, however, these only emerged 8 hours after she had taken it. Patient was given Benadryl, however, appeared to precipitously and conspicuously demonstrate her symptoms to us then was subsequently observed to walk back into her group and/or lounge and would eat without any difficulties. Review Of Systems General: The patient reports improved sedation Cardiovascular: Denies chest pain or palpitations GI: Denies Nausea, vomiting, or bowel changes Respiratory: The patient reports shortness of breath, but does not appear in any distress Neuro: Denies dizziness, tremors Derm: Denies any rashes or pruritus : Denies any dysuria or urinary problems MSK: Denies any muscle tightness or stiffness HEENT: Denies any vision changes or headaches Psychotherapy None on this visit. Vital Signs Reviewed. Mental Status Examination General: The patient continues to have poor hygiene, but does not appear in any acute distress Speech: Spontaneous and fluid Thought processes: Linear at times MSK: Smooth and coordinated gait, no signs of tremors or involuntary orofacial movements Thought content: Paranoia does not appear as evident Abstract reasoning, and computation: Impaired Description of associations: Improved Description of abnormal or psychotic thoughts: As above for suicide. Denies ho micidal or auditory or visual hallucination Judgment: Appears still impaired Insight: Appears still impaired Orientation: Alert and orientated 3 Cognition: Grossly normal Recent and remote memory: Intact Attention span and concentration: Intact Fund of knowledge: Adequate Mood: "Hi" Affect: Notably less irritable Diagnoses Unspecified psychotic disorder. Assessment and Plan Unspecified psychotic disorder: Continue fluphenazine 10 mg nightly and lithium. We will continue Provigil. Patient will decline if she decides tomorrow. Benadryl offered for EPS/allergy prophylaxis, however, appears highly unlikely of either as on observation she does not appear to have any of those signs or symptoms with normal vital signs. Her reported symptoms of allgery and eps have happened respectively 8 hours from her Provigil and well over 12 hours from her fluphenazine, making it very unlikely. Recommend hospitalist consult if patient continues to complain of it as she has a notable history of attempting to deceive us into changing medication or cheeking it and thus should be scrutinized. Disposition The patient will need a further inpatient admission as she is still distorted and disorganized. Referral to [facility] will be undertaken at this time due to her likely need for long-term care. She was kept on retention at this time under a court order. Time Spent 15 minutes [id number]. Friday Current Medications Current Medications Medications (Trade) Dose Ordered Sig/Alfredo Route PRN Reason Start Time Stop Time Status Last Admin Dose Admin Acetaminophen (Tylenol Tab) 650 mg Q6HP PRN PO HEADACHE or DISCOMFORT 09/10/19 17:00 Al Hydrox/Mg Hydrox/Simethicone (Mylanta) 30 ml Q4HP PRN PO HEARTBURN/INDIGESTION 09/10/19 17:00 Albuterol Sulfate (Proventil, Ventolin Hfa) 2 puff Q4HP PRN INH SHORTNESS OF BREATH 09/11/19 10:15 Chlorpromazine HCl (Thorazine) 50 mg STAT STAT IM 09/12/19 11:45 09/12/19 11:50 DC 09/12/19 11:56 Fluphenazine HCl (Prolixin) 5 mg QHS PO 09/13/19 21:00 09/16/19 09:14 DC 09/15/19 20:18 Fluphenazine HCl (Prolixin) 10 mg QHS PO 09/16/19 21:00 09/30/19 20:56 Fluphenazine HCl (Prolixin) 10 mg QHS PRN IM SEE LABEL COMMENTS 09/30/19 17:00 Home Med (Med Rec Complete!) ASDIRECTED XX 09/10/19 17:45 09/10/19 17:43 DC [place] Carbonate (Eskalith Oral Solution) 150 mg BID PO 09/10/19 21:00 09/13/19 09:01 DC 09/12/19 20:30 [place] Carbonate (Eskalith Oral Solution) 300 mg BID PO 09/13/19 09:00 09/21/19 18:36 DC 09/21/19 09:08 [place] Carbonate (Eskalith Oral Solution) 300 mg QHS PO 09/21/19 21:00 09/30/19 20:56 Lorazepam (Ativan) 1 mg STAT STAT IM 09/12/19 11:45 09/12/19 11:54 DC Lorazepam (Ativan) 2 mg STAT STAT IM 09/12/19 11:51 09/12/19 11:52 DC 09/12/19 11:55 Magnesium Hydroxide (Milk Of Magnesia) 30 ml DAILYPRN PRN PO CONSTIPATION 09/10/19 17:00 Modafinil (Provigil) 25 mg QAM PO 10/01/19 09:00 10/01/19 08:58 Non-Formulary Medication 1 ea ASDIRECTED IM 09/29/19 15:45 09/30/19 17:04 DC Propranolol HCl (Inderal) 10 mg BIDP PRN PO ANXIETY/AGITATION 09/20/19 13:15 Trazodone HCl (Desyrel) 50 mg QHSP PRN PO INSOMNIA 09/10/19 17:00 Allergies Coded Allergies: bupropion (Verified Allergy, Intermediate, 09/06/19) NASIR NUÑEZ DO Oct 01, 2019 10:10
[2019-10-01] MEDS: LITHIUM CARBONATE 300MG/5ML(8MEQ/5ML)ORAL SOLUTION UDC PO SCH (20:31)
[2019-10-01] MEDS: diphenhydrAMINE 25 MG CAP PO PRN (21:30)
[2019-10-02] MEDS: MODAFINIL 100 MG TABLET PO SCH (09:00)
[2019-10-02] MEDS: LITHIUM CARBONATE 300MG/5ML(8MEQ/5ML)ORAL SOLUTION UDC PO SCH (20:54)
[2019-10-02] MEDS: diphenhydrAMINE 25 MG CAP PO PRN (20:54)
[2019-10-03] MEDS: MODAFINIL 100 MG TABLET PO SCH (09:00)
[2019-10-03] MEDS: diphenhydrAMINE 25 MG CAP PO PRN (21:31)
[2019-10-03] MEDS: LITHIUM CARBONATE 300MG/5ML(8MEQ/5ML)ORAL SOLUTION UDC PO SCH (21:31)
[2019-10-04] MEDS: MODAFINIL 100 MG TABLET PO SCH (08:55)
--- NOTE | 2019-10-04 10:39 | MHIPNPDOC ---
[facility] Progress Note Progress Note Inpatient Progress Note Maria Elena Fonseca MRN: N/A Date of : N/A Date of Service: 10/04/2019 History of Present Illness The patient is a 34-year-old woman who is rapidly readmitted after the patient decompensated when she was discharged. Is brought back, she is much more paranoid, aggressive and violent. When she is denied various underwear for head covering, she had been coded the previous evening. After her readmission she had subsequently left the unit where she then got into a strangers car and was refusing to leave. Unable to function without any assistance, she was brought back and readmitted. Interval History Psychiatric symptoms today: The patient is met with. She continues to report some improvement on fluphenazine, although continues to complain that she feels that it causes "EPS." She has been doing somewhat better on the unit Affective: The patient reports no significant depressed mood today Psychotic: The patient appears to become much less disorganized over the weekend, although has difficulty with what appears to be manipulative behavior Misc: The patient's sleep appears to be improving, approaching 5 to 6 hours a night. Eating behavior appears normal Group Attendance: Still have fair group attendance Medication Side effects: See ROS below Behavioral problems/significant events overnight: None reported Staff Report: The patient has continued to make complaints about the fluphenazine but has not demonstrated any objective signs of allergy, takes Benadryl with her fluphenazine. The patient has problems other than refusing vital signs Review Of Systems General: The patient reports improved sedation Cardiovascular: Denies chest pain or palpitations GI: Denies Nausea, vomiting, or bowel changes Respiratory: The patient denies any shortness of breath or cough at this time Neuro: Denies dizziness, tremors Derm: Denies any rashes or pruritus : Denies any dysuria or urinary problems MSK: Denies any muscle tightness or stiffness HEENT: Denies any vision changes or headaches Psychotherapy None on this visit. Vital Signs Has been refusing. Mental Status Examination General: The patient continues to have [id number] hygiene Speech: Spontaneous and fluid Thought processes: Linear at times MSK: Smooth and coordinated gait, no signs of tremors or involuntary orofacial movements Thought content: Paranoia does not appear as evident Abstract reasoning, and computation: Impaired Description of associations: Improved Description of abnormal or psychotic thoughts: As above for suicide. Denies homicidal or auditory or visual hallucination Judgment: Appears to be improving Insight: Appears to be improving Orientation: Alert and orientated 3 Cognition: Grossly normal Recent and remote memory: Intact Attention span and concentration: Intact Fund of knowledge: Adequate Mood: "Hi" Affect: More euthymic, less irritable Diagnoses Unspecified psychotic disorder. Assessment and Plan Unspecified psychotic disorder: Continue fluphenazine and lithium at this time. Increase Provigil as patient reports she finds it helpful to 50 mg. Disposition The patient appears to be improving. We'll need to ascertain patient's baseline and potentially be able to discharge her if we can assure she has a safe place to go to. Time Spent 15 minutes. Friday Current Medications Current Medications Medications (Trade) Dose Ordered Sig/Alfredo Route PRN Reason Start Time Stop Time Status Last Admin Dose Admin Acetaminophen (Tylenol Tab) 650 mg Q6HP PRN PO HEADACHE or DISCOMFORT 09/10/19 17:00 10/02/19 22:17 Al Hydrox/Mg Hydrox/Simethicone (Mylanta) 30 ml Q4HP PRN PO HEARTBURN/INDIGESTION 09/10/19 17:00 Albuterol Sulfate (Proventil, Ventolin Hfa) 2 puff Q4HP PRN INH SHORTNESS OF BREATH 09/11/19 10:15 Chlorpromazine HCl (Thorazine) 50 mg STAT STAT IM 09/12/19 11:45 09/12/19 11:50 DC 09/12/19 11:56 Diphenhydramine HCl (Benadryl) 25 mg Q4HP PRN PO ITCHING 10/01/19 16:15 10/03/19 21:31 Fluphenazine HCl (Prolixin) 5 mg QHS PO 09/13/19 21:00 09/16/19 09:14 DC 09/15/19 20:18 Fluphenazine HCl (Prolixin) 10 mg QHS PO 09/16/19 21:00 10/03/19 21:33 Fluphenazine HCl (Prolixin) 10 mg QHS PRN IM SEE LABEL COMMENTS 09/30/19 17:00 Home Med (Med Rec Complete!) ASDIRECTED XX 09/10/19 17:45 09/10/19 17:43 DC [place] Carbonate (Eskalith Oral Solution) 150 mg BID PO 09/10/19 21:00 09/13/19 09:01 DC 09/12/19 20:30 [place] Carbonate (Eskalith Oral Solution) 300 mg BID PO 09/13/19 09:00 09/21/19 18:36 DC 09/21/19 09:08 [place] Carbonate (Eskalith Oral Solution) 300 mg QHS PO 09/21/19 21:00 10/03/19 21:31 Lorazepam (Ativan) 1 mg STAT STAT IM 09/12/19 11:45 09/12/19 11:54 DC Lorazepam (Ativan) 2 mg STAT STAT IM 09/12/19 11:51 09/12/19 11:52 DC 09/12/19 11:55 Magnesium Hydroxide (Milk Of Magnesia) 30 ml DAILYPRN PRN PO CONSTIPATION 09/10/19 17:00 Modafinil (Provigil) 25 mg QAM PO 10/01/19 09:00 10/04/19 08:55 Non-Formulary Medication 1 ea ASDIRECTED IM 09/29/19 15:45 09/30/19 17:04 DC Propranolol HCl (Inderal) 10 mg BIDP PRN PO ANXIETY/AGITATION 09/20/19 13:15 Trazodone HCl (Desyrel) 50 mg QHSP PRN PO INSOMNIA 09/10/19 17:00 Allergies Coded Allergies: bupropion (Verified Allergy, Intermediate, 09/06/19) NASIR NUÑEZ DO Oct 04, 2019 10:39
[2019-10-04] MEDS: diphenhydrAMINE 25 MG CAP PO PRN (21:23)
[2019-10-04] MEDS: LITHIUM CARBONATE 300MG/5ML(8MEQ/5ML)ORAL SOLUTION UDC PO SCH (21:23)
[2019-10-05] MEDS: MODAFINIL 100 MG TABLET PO SCH (08:15)
--- NOTE | 2019-10-05 12:14 | MHIPNPDOC ---
[facility] Progress Note Progress Note Inpatient Progress Note Maria Elena Fonseca MRN: N/A Date of : N/A Date of Service: 10/05/2019 History of Present Illness The patient is a 34-year-old woman who is rapidly readmitted after the patient decompensated when she was discharged. Is brought back, she is much more paranoid, aggressive and violent. When she is denied various underwear for head covering, she had been coded the previous evening. After her readmission she had subsequently left the unit where she then got into a strangers car and was refusing to leave. Unable to function without any assistance, she was brought back and readmitted. Interval History Psychiatric symptoms today: The patient is met with and continues to report some improvement in different thoughts on fluphenazine, continues to try to focus on having "EPS" with no objective signs, has been doing better on the unit, although has behavioral problems that appear to be primarily personality. Affective: The patient reports no significant depressed mood today Psychotic: The patient is much less disorganized and appears to be demonstrating less tangentiality. Misc: The patient's sleeping appears normal with 5 to 6 hours a night. Eating is normal Group Attendance: Still have fair group attendance Medication Side effects: See ROS below Behavioral problems/significant events overnight: None reported Staff Report: The patient continues to complain about the medication but takes it willingly. She appears to demonstrate quite a bit of manipulative behavior. Review Of Systems General: Denies fever or appetite changes Cardiovascular: Denies Chest pain or palpitations GI: Denies Nausea, vomiting, or bowel changes Respiratory: Denies shortness of breath or cough Neuro: Denies dizziness, tremors Derm: Denies any rashes or pruritus : Denies any dysuria or urinary problems MSK: Denies any muscle tightness or stiffness HEENT: Denies any vision changes or headaches Psychotherapy None on this visit. Vital Signs Reviewed. Mental Status Examination General: The patient continues to have [id number] hygiene Speech: Spontaneous and fluid Thought processes: Linear at times MSK: Smooth and coordinated gait, no signs of tremors or involuntary orofacial m ovements Thought content: Paranoia does not appear as evident Abstract reasoning, and computation: Improved. Description of associations: Improved. Description of abnormal or psychotic thoughts: As above for suicide. Denies homicidal or auditory or visual hallucination Judgment: Improving Insight: Improving Orientation: Alert and orientated 3 Cognition: Grossly normal Recent and remote memory: Intact Attention span and concentration: Intact Fund of knowledge: Adequate Mood: "Hi" Affect: More euthymic. Diagnoses Unspecified psychotic disorder. Assessment and Plan Unspecified psychotic disorder: Continue fluphenazine, lithium and Provigil at this time. Patient appears to be making some improvement. Patient likely has schizophrenia. Further records were found in the regional health information organization from 2018, 16 and 17 respectively, demonstrating a long history of psychosis. Disposition The patient appears to be making improvements. We will attempt to triage the patient for discharge at the end of the week if sustained improvement can be made. She is amenable to giving us the name of a friend who can test to how she is doing and potentially help her when she leaves. Time Spent 15 minutes. Friday Current Medications Current Medications Medications (Trade) Dose Ordered Sig/Alfredo Route PRN Reason Start Time Stop Time Status Last Admin Dose Admin Acetaminophen (Tylenol Tab) 650 mg Q6HP PRN PO HEADACHE or DISCOMFORT 09/10/19 17:00 10/02/19 22:17 Al Hydrox/Mg Hydrox/Simethicone (Mylanta) 30 ml Q4HP PRN PO HEARTBURN/INDIGESTION 09/10/19 17:00 Albuterol Sulfate (Proventil, Ventolin Hfa) 2 puff Q4HP PRN INH SHORTNESS OF BREATH 09/11/19 10:15 Chlorpromazine HCl (Thorazine) 50 mg STAT STAT IM 09/12/19 11:45 09/12/19 11:50 DC 09/12/19 11:56 Diphenhydramine HCl (Benadryl) 25 mg Q4HP PRN PO ITCHING 10/01/19 16:15 10/04/19 21:23 Fluphenazine HCl (Prolixin) 5 mg QHS PO 09/13/19 21:00 09/16/19 09:14 DC 09/15/19 20:18 Fluphenazine HCl (Prolixin) 10 mg QHS PO 09/16/19 21:00 10/04/19 21:23 Fluphenazine HCl (Prolixin) 10 mg QHS PRN IM SEE LABEL COMMENTS 09/30/19 17:00 Home Med (Med Rec Complete!) ASDIRECTED XX 09/10/19 17:45 09/10/19 17:43 DC [place] Carbonate (Eskalith Oral Solution) 150 mg BID PO 09/10/19 21:00 09/13/19 09:01 DC 09/12/19 20:30 [place] Carbonate (Eskalith Oral Solution) 300 mg BID PO 09/13/19 09:00 09/21/19 18:36 DC 09/21/19 09:08 [place] Carbonate (Eskalith Oral Solution) 300 mg QHS PO 09/21/19 21:00 10/04/19 21:23 Lorazepam (Ativan) 1 mg STAT STAT IM 09/12/19 11:45 09/12/19 11:54 DC Lorazepam (Ativan) 2 mg STAT STAT IM 09/12/19 11:51 09/12/19 11:52 DC 09/12/19 11:55 Magnesium Hydroxide (Milk Of Magnesia) 30 ml DAILYPRN PRN PO CONSTIPATION 09/10/19 17:00 Modafinil (Provigil) 25 mg QAM PO 10/01/19 09:00 10/04/19 14:52 DC 10/04/19 08:55 Modafinil (Provigil) 50 mg QAM PO 10/05/19 09:00 10/05/19 08:15 Non-Formulary Medication 1 ea ASDIRECTED IM 09/29/19 15:45 09/30/19 17:04 DC Propranolol HCl (Inderal) 10 mg BIDP PRN PO ANXIETY/AGITATION 09/20/19 13:15 Trazodone HCl (Desyrel) 50 mg QHSP PRN PO INSOMNIA 09/10/19 17:00 Allergies Coded Allergies: bupropion (Verified Allergy, Intermediate, 09/06/19) NASIR NUÑEZ DO Oct 05, 2019 12:14
[2019-10-05 16:07] VITALS: BP 120/70
[2019-10-05] MEDS: LITHIUM CARBONATE 300MG/5ML(8MEQ/5ML)ORAL SOLUTION UDC PO SCH (20:54)
[2019-10-05] MEDS: diphenhydrAMINE 25 MG CAP PO PRN (20:55)
[2019-10-06] MEDS: diphenhydrAMINE 25 MG CAP PO PRN ×2 (02:13→20:17)
[2019-10-06] MEDS: MODAFINIL 100 MG TABLET PO SCH (08:37)
--- NOTE | 2019-10-06 11:48 | MHIPNPDOC ---
[facility] Progress Note Progress Note Inpatient Progress Note Maria Elena Fonseca MRN: N/A Date of : N/A Date of Service: 10/06/2019 History of Present Illness The patient is a 34-year-old woman who is rapidly readmitted after the patient decompensated when she was discharged. Is brought back, she is much more paranoid, aggressive and violent. When she is denied various underwear for head covering, she had been coded the previous evening. After her readmission she had subsequently left the unit where she then got into a strangers car and was refusing to leave. Unable to function without any assistance, she was brought back and readmitted. Interval History Psychiatric symptoms today: The patient is making some improvements, still manipulative at times, but is taking the medications consistently. Affective: The patient reports no significant depressed mood today Psychotic: The patient's disorganized and tangentiality appeared to be resolving well. Misc: The patient's sleeping appears normal with 5 to 6 hours a night. Eating is normal Group Attendance: Still have fair group attendance Medication Side effects: See ROS below Behavioral problems/significant events overnight: None reported Staff Report: Primarily manipulative behavior, disorganization previous not is present. Review Of Systems General: Denies fever or appetite changes Cardiovascular: Denies Chest pain or palpitations GI: Denies Nausea, vomiting, or bowel changes Respiratory: Denies shortness of breath or cough Neuro: Denies dizziness, tremors Derm: Denies any rashes or pruritus : Denies any dysuria or urinary problems MSK: Denies any muscle tightness or stiffness HEENT: Denies any vision changes or headaches Psychotherapy None on this visit. Vital Signs Patient refused to let us take vitals. Mental Status Examination General: The patient continues to have [id number] hygiene Speech: Spontaneous and fluid Thought processes: Linear at times MSK: Smooth and coordinated gait, no signs of tremors or involuntary orofacial movements Thought content: Paranoia does not appear as evident Abstract reasoning, and computation: Improved. Description of associations: Improved. Description of abnormal or psychotic thoughts: As above for suicide. Denies homicidal or auditory or visual hallucination Judgment: Improving Insight: Improving Orientation: Alert and orientated 3 Cognition: Grossly normal Recent and remote memory: Intact Attention span and concentration: Intact Fund of knowledge: Adequate Mood: "Hi" Affect: More euthymic. Diagnoses Unspecified psychotic disorder. Antisocial personality disorder. Assessment and Plan Unspecified psychotic disorder: Continue fluphenazine, lithium and Provigil. Patient signed release for friend who reports the patient is at baseline and has actually made some improvements. Patient will engage with financial planner to ascertain housing options available for her with the potential discharge tomorrow, if she continues to improve. Disposition Discharge tomorrow if patient continues to improve. Time Spent 15 minutes. Friday Vital Signs Vital Signs Date Time Temp Pulse Resp B/P (MAP) Pulse Ox O2 Delivery O2 Flow Rate FiO2 10/06/19 09:52 Room Air 10/05/19 16:07 98.2 66 16 120/70 (87) Current Medications Current Medications Medications (Trade) Dose Ordered Sig/Alfredo Route PRN Reason Start Time Stop Time Status Last Admin Dose Admin Acetaminophen (Tylenol Tab) 650 mg Q6HP PRN PO HEADACHE or DISCOMFORT 09/10/19 17:00 10/02/19 22:17 Al Hydrox/Mg Hydrox/Simethicone (Mylanta) 30 ml Q4HP PRN PO HEARTBURN/INDIGESTION 09/10/19 17:00 Albuterol Sulfate (Proventil, Ventolin Hfa) 2 puff Q4HP PRN INH SHORTNESS OF BREATH 09/11/19 10:15 Chlorpromazine HCl (Thorazine) 50 mg STAT STAT IM 09/12/19 11:45 09/12/19 11:50 DC 09/12/19 11:56 Diphenhydramine HCl (Benadryl) 25 mg Q4HP PRN PO ITCHING 10/01/19 16:15 10/06/19 02:13 Fluphenazine HCl (Prolixin) 5 mg QHS PO 09/13/19 21:00 09/16/19 09:14 DC 09/15/19 20:18 Fluphenazine HCl (Prolixin) 10 mg QHS PO 09/16/19 21:00 10/05/19 20:54 Fluphenazine HCl (Prolixin) 10 mg QHS PRN IM SEE LABEL COMMENTS 09/30/19 17:00 Home Med (Med Rec Complete!) ASDIRECTED XX 09/10/19 17:45 09/10/19 17:43 DC [place] Carbonate (Eskalith Oral Solution) 150 mg BID PO 09/10/19 21:00 09/13/19 09:01 DC 09/12/19 20:30 [place] Carbonate (Eskalith Oral Solution) 300 mg BID PO 09/13/19 09:00 09/21/19 18:36 DC 09/21/19 09:08 [place] Carbonate (Eskalith Oral Solution) 300 mg QHS PO 09/21/19 21:00 10/05/19 20:54 Lorazepam (Ativan) 1 mg STAT STAT IM 09/12/19 11:45 09/12/19 11:54 DC Lorazepam (Ativan) 2 mg STAT STAT IM 09/12/19 11:51 09/12/19 11:52 DC 09/12/19 11:55 Magnesium Hydroxide (Milk Of Magnesia) 30 ml DAILYPRN PRN PO CONSTIPATION 09/10/19 17:00 Modafinil (Provigil) 25 mg QAM PO 10/01/19 09:00 10/04/19 14:52 DC 10/04/19 08:55 Modafinil (Provigil) 50 mg QAM PO 10/05/19 09:00 10/06/19 08:37 Non-Formulary Medication 1 ea ASDIRECTED IM 09/29/19 15:45 09/30/19 17:04 DC Propranolol HCl (Inderal) 10 mg BIDP PRN PO ANXIETY/AGITATION 09/20/19 13:15 Trazodone HCl (Desyrel) 50 mg QHSP PRN PO INSOMNIA 09/10/19 17:00 Allergies Coded Allergies: bupropion (Verified Allergy, Intermediate, 09/06/19) NASIR NUÑEZ DO Oct 06, 2019 11:48
[2019-10-06] MEDS ORDERED: fluPHENAZine DECAN 25MG/ML 5ML VIAL (J2680) IM ONE (12:00)
[2019-10-06] MEDS: LITHIUM CARBONATE 300MG/5ML(8MEQ/5ML)ORAL SOLUTION UDC PO SCH (20:17)
[2019-10-07] MEDS: MODAFINIL 100 MG TABLET PO SCH (08:32)
[2019-10-07] MEDS ORDERED: MODA100T13 PO (10:45)
[2019-10-07] MEDS ORDERED: BENZ0.5T23 PO (10:45)
[2019-10-07] MEDS ORDERED: FLUP5TA PO (10:45)
--- NOTE | 2019-10-07 10:46 | MHDSPDOC ---
[facility] Discharge Summary Discharge Summary DATE OF ADMISSION: Sep 10, 2019 at 16:48 DATE OF DISCHARGE: 10/07/19 Discharge Maria Elena Fonseca MRN: N/A Date of : N/A Date of Service: 10/07/2019 Diagnoses Unspecified psychotic disorder. Antisocial personality disorder. History of Present Illness The patient is a 34-year-old woman who is rapidly readmitted after the patient decompensated when she was discharged. Is brought back, she is much more paranoid, aggressive and violent. When she is denied various underwear for head covering, she had been coded the previous evening. After her readmission she had subsequently left the unit where she then got into a strangers car and was refusing to leave. Unable to function without any assistance, she was brought back and readmitted. Consultants Involved Hospitalist/PCP screening Treatment and Progress On The Unit Patient was admitted to the inpatient unit for a second time. She was offered fluphenazine as we have a little information relating to it. She was taken to court for treatment over objection and retention, where she was kept and after starting taking the oral fluphenazine, the patient reported some tiredness, was started on Provigil 25, increased to 50. She had significant manipulative behaviors attempting to hide her deficits and disorganization as well as tangentiality. The patient was very paranoid and aggressive at times when she initially arrived. The patient after the treatment of her objection and more consistent dosing as well as a dose of the liquid lithium at 300 mg QHS, the patient began to improved, became more focused, less agitated and was able to attend the hygiene intermittently. The patient initially was slated for referral to long-term; however, she made improvement well enough that, that did not need to happen. She was able to give us information of a friend who could test her current state of mind and report that she was actually doing quite well as they talked regularly. Discharge Assessment 34-year-old woman with a history of likely schizophrenia, presents psychotic and distorted, attempts previously to have her leave on successful as she is to disorganized. After treatment over objection and retention, the patient was started on fluphenazine with positive results. She is discharged on oral fluphenazine and lithium as she no longer met involuntary criteria in my opinion as she had been denying suicidal and homicidality throughout her stay and had returned to reported baseline level of functioning, was able to attend her needs and no longer was hoarding foods with more less a normal mental status, although we could have given the patient a long-acting injectable. The patient would need to continue oral medications. At this time, it appears the risk would be greater to her to give her an injection with no hope of it being continued rather than continuing oral medications in hopes that she would continue. The patient declined further voluntary extension and was discharged in good cindy. Mental Status Examination General: Well dressed with good hygiene Speech: Spontaneous and fluid Thought processes: Linear and logical MSK: Smooth and coordinated gait, no signs of tremors or involuntary orofacial movements Thought content: Future orientated Abstract reasoning, and computation: Intact Description of associations: Intact Description of abnormal or psychotic thoughts: Denies any suicidal or homicidal ideation. Denies any auditory or visual hallucinations. Does not appear to be responding to internal stimuli. Does not appear to be endorsing any bizarre or paranoid ideation. Judgment: fair Insight: fair Orientation: Alert and orientated 3 Cognition: Grossly normal Recent and remote memory: Intact Attention span and concentration: Intact Fund of knowledge: Adequate Mood: "okay" Affect: Euthymic with a full range Follow Up The social work team worked during the predischarge meeting in order to evaluate for further issues of lethality address them fully before discharge. They worked on safety planning with the patient's family members in order to ensure that the patient will have a safe and effective discharge. Time Spent The amount of time spent in the coordination of care for this patient was approximately 40 minutes. Vital Signs/I&Os Vital Signs Date Time Temp Pulse Resp B/P (MAP) Pulse Ox O2 Delivery O2 Flow Rate FiO2 10/06/19 09:52 Room Air 10/05/19 16:07 98.2 66 16 120/70 (87) Medications Scheduled Benztropine Mesylate (Benztropine Mesylate) 0.5 Mg Tablet, 1 TAB PO BID for eps for 7 Days, #7 Fluphenazine HCl (Fluphenazine HCl) 5 Mg Tablet, 10 MG PO QHS for mood for 7 Days, #7 [place] Carbonate ([place] Carbonate) 300 Mg Capsule, 2.5 ML PO BID for mood for 7 Days, #35 Modafinil (Modafinil) 100 Mg Tablet, 50 MG PO QAM for fatigue for 7 Days, #7 Allergies Coded Allergies: bupropion (Verified Allergy, Intermediate, 09/06/19) NASIR NUÑEZ DO Oct 07, 2019 10:46
== END 2019-10-07 12:45 | disposition home or self-care (01) | DRG 751 ==
LOC: M ED 16:03 → M ED INP 16:48 → M PSY 20:15
PROVIDERS: ADMIT Psychiatry & Neurology Addiction Medicine; ATTEND Psychiatry & Neurology Addiction Medicine
DX: F29 Unspecified psychosis not due to a substance or known physiological condition (principal); F60.2 Antisocial personality disorder; F31.11 Bipolar disorder, current episode manic without psychotic features, mild; Z88.8 Allergy status to other drugs, medicaments and biological substances; Z79.899 Other long term (current) drug therapy; Z78.1 Physical restraint status; E28.2 Polycystic ovarian syndrome; F41.9 Anxiety disorder, unspecified; F43.10 Post-traumatic stress disorder, unspecified; F17.200 Nicotine dependence, unspecified, uncomplicated; J44.9 Chronic obstructive pulmonary disease, unspecified